=== PATIENT | female | born 1955 | race Caucasian/White ===

== ENCOUNTER 2016-05-29 08:17 | Inpatient (IN) | payer MEDICARE, BC ==
[2016-05-29] MEDS ORDERED: methylPREDNISolone SOD SUCCI 125 MG/2 ML VIAL IV STA (08:49)
[2016-05-29] MEDS ORDERED: SODIUM CHLORIDE 0.9% 1,000 ML IV STA ×2 (08:49→10:38)
[2016-05-29 09:32] LABS: Basophils % (A) 0 %; CH 31.1; Eosinophils % (A) 0 %; HCT 41.6 % (34.0-46.0); HDW 2.49; HGB 13.4 gm/dL (11.4-16.0); Luc # (Auto) 0.08; Luc % (Auto) 1; Lymphocytes # (A) 0.2 k/uL (1.0-4.8); Lymphocytes % (A) 2 %; MCH 30.4 pg (25.0-35.0); MCHC 32.2 g/dL (31.0-37.0); MCV 94.4 fL (80.0-100.0); Mean Platelet Volume 8.4; Monocytes # (A) 0.4 k/uL (0-1.0); Monocytes % (A) 4 %; Neutrophils # (A) 8.9 k/uL (1.3-7.7); Neutrophils % (A) 93 %; RBC 4.41 m/uL (3.80-5.40); RDW 12.1 % (11.5-15.5); WBC 9.5 k/uL (3.8-10.6); WBC (Perox) 9.78
[2016-05-29 09:44] LABS: Potassium 4.3 mmol/L (3.5-5.1); Total Bilirubin 0.5 mg/dL (0.2-1.3); Total Protein 8.3 g/dL (6.3-8.2)
--- NOTE | 2016-05-29 09:50 | CT ---
EXAMINATION TYPE: CT brain wo con DATE OF EXAM: 05/29/2016 9:40 AM COMPARISON: MRI brain May 31, 2015. HISTORY: Patient poor historian. Patient displays aphasia. Patient has history of MS. CT DLP: 1019 mGycm. Automated Exposure Control for Dose Reduction was Utilized. TECHNIQUE: CT scan of the head is performed without contrast. FINDINGS: There is no acute intracranial hemorrhage or midline shift identified. There is symmetric sulcal prominence over the frontal lobes bilaterally suggesting frontal lobe atrophy redemonstrated. Some areas of low-attenuation in periventricular white matter are nonspecific and likely related to patient's known multiple sclerosis, for reference largest 9 mm lesion is noted right parietal lobe ce ntrum semiovale mild bowel level on axial image 28. There is however new vague areas of low-attenuat ion involving the occipital lobes bilaterally, left worse than right, findings seen best on coronal i mage 53. The globes are intact and the visualized sinuses are clear. IMPRESSION: Mild diffuse symmetric frontal lobe atrophy redemonstrated. Mild nonspecific white matter changes likely a combination of product of known multiple sclerosis and product of chronic small ves romi ischemic change. New nonspecific vague low attenuation bilateral occipital lobes, left worse than right, this would be atypical appearance of demyelinating disease exacerbation, acute/subacute infar ct is in the differential but bilateral involvement would be unusual, one must consider posterior rev ersible encephalopathy syndrome. Clinical correlation advised. MRI follow-up may be beneficial.
[2016-05-29 10:05] LABS: Calcium 16.9 mg/dL (8.4-10.2)
--- NOTE | 2016-05-29 10:06 | ED ---
General Adult HPI <Beto Castro - Last Filed: 05/29/16 10:37> - General Source: patient, family, RN notes reviewed Mode of arrival: wheelchair Limitations: physical limitation <Shanon Torres - Last Filed: 05/29/16 10:41> - General Chief complaint: Recheck/Abnormal Lab/Rx Stated complaint: MS Problems Time Seen by Provider: 05/29/16 08:39 - History of Present Illness Initial comments: 60 yo female presents to the ER with cc of flareup of her MS symptoms. The patient does have are from EMS. The patient has been on experimental drugs and being seen with a neurologist for this. The patient normally gets up she walks she drives. On she started not feel to do these things. The patient is having difficulty walking she states also she'll get a jerk and then she'll lose control. Patient states she notices weakness to the leg she can still move them they just feel weak as well as to the bilateral arms and she feels jerky. Patient states that her cognition is seems off as well. He states this all started they called the neurologist the neurologist was trying to make an appointment for Sunday or Sunday they're unable to get her in today so that they should be seen. She is no loss of bowel or bladder function. She has fallen but never to injure herself. They were concerned because of how for she was doing. She has a MS but she's never had these problems associated with this.Patient denies any recent fever, chills, shortness of breath, chest pain, back pain, abdominal pain, nausea vomiting, numbness or tingling, dysuria or hematuria, constipation or diarrhea, headaches or visual changes, or any other current symptoms. (Shanon Torres) - Related Data Home Medications Medication Instructions Recorded Confirmed ALPRAZolam [Xanax] 0.25 mg PO DAILY PRN 07/20/14 05/29/16 Amitriptyline HCl [Elavil] 50 mg PO HS 07/20/14 05/29/16 Cetirizine HCl [Zyrtec] 10 mg PO HS 07/20/14 05/29/16 Mirabegron [Myrbetriq] 25 mg PO DAILY 07/20/14 05/29/16 OXcarbazepine [Trileptal] 300 mg PO BID 07/20/14 05/29/16 tiZANidine [Zanaflex] 2 mg PO QID 07/20/14 05/29/16 Ampyra Er 10 mg PO BID 05/29/16 05/29/16 Ciprofloxacin HCl [Cipro] 250 mg PO BID 05/29/16 05/29/16 Fingolimod HCl [Gilenya] 0.5 mg PO DAILY 05/29/16 05/29/16 Fluconazole [Diflucan] 100 mg PO DAILY 05/29/16 05/29/16 Hydrocortisone/Iodoquinol Crm 1 applic TOPICAL DAILY 05/29/16 05/29/16 [Vytone 1%-1%] Multivitamins, Thera [Multivitamin] 1 tab PO DAILY 05/29/16 05/29/16 Nystatin 100,000Unit/gm Cream 1 applic TOPICAL BID PRN 05/29/16 05/29/16 [Mycostatin Cream] Raloxifene [Evista] 60 mg PO DAILY 05/29/16 05/29/16 metroNIDAZOLE [Metrolotion] 1 applic TOPICAL BID 05/29/16 05/29/16 Allergies Allergy/AdvReac Type Severity Reaction Status Date / Time Sulfa (Sulfonamide Allergy hives Verified 05/29/16 09:04 Antibiotics) Review of Systems ROS Other: All systems not noted in ROS Statement are negative. <Beto Castro - Last Filed: 05/29/16 10:37> ROS Other: All systems not noted in ROS Statement are negative. <Shanon Torres - Last Filed: 05/29/16 10:41> ROS Statement: Those systems with pertinent positive or pertinent negative responses have been documented in the HPI. Past Medical History Past Medical History: GERD/Reflux Additional Past Medical History / Comment(s): multiple sclerosis, migraines, chronic constipation, hx ulcer History of Any Multi-Drug Resistant Organisms: None Reported Past Surgical History: Section, Tonsillectomy Additional Past Surgical History / Comment(s): D&C's, sinus surgery Past Anesthesia/Blood Transfusion Reactions: Motion Sickness, Postoperative Nausea & Vomiting (PONV) Past Psychological History: Anxiety Smoking Status: Former smoker Past Alcohol Use History: None Reported Past Drug Use History: None Reported <Shanon Torres - Last Filed: 05/29/16 10:41> General Exam <Beto Castro - Last Filed: 05/29/16 10:37> Limitations: physical limitation <Shanon Torres - Last Filed: 05/29/16 10:41> - General Exam Comments Initial Comments: General: The patient is awake and alert, in no distress, and does not appear acutely ill. Eye: Pupils are equal, round and reactive to light, extra-ocular movements are intact; there is normal conjunctiva bilaterally. No signs of icterus. Ears, nose, mouth and throat: There are moist mucous membranes. Neck: The neck is supple, there is no tenderness. Cardiovascular: There is a regular rate and rhythm. No murmur, rub or gallop is appreciated. Respiratory: Lungs are clear to auscultation, respirations are non-labored, breath sounds are equal. No wheezes, stridor, rales, or rhonchi. Gastrointestinal: Soft, non-distended, non-tender abdomen without masses or organomegaly noted. There is no rebound or guarding present. No CVA tenderness. Bowel sounds are unremarkable. Back: There is no tenderness to palpation in the midline. There is no obvious deformity. No rashes noted. Musculoskeletal: Generalized weakness to all extremities. Normal ROM, no tenderness, There is no pedal edema. There is no calf tenderness or swelling. Sensation intact. Pulses equal bilaterally 2+. Neurological: CN II-XII intact, There are no obvious motor or sensory deficits. Coordination appears grossly intact. Speech is normal. Skin: Skin is warm and dry and no rashes or lesions are noted. Psychiatric: Cooperative, appropriate mood & affect, normal judgment. (Shanon Torres) Medical Decision Making - Lab Data Result diagrams: 05/29/16 09:20 05/29/16 09:20 <Beto Castro - Last Filed: 05/29/16 10:37> - Lab Data Result diagrams: 05/29/16 09:20 05/29/16 09:20 - Radiology Data Radiology results: report reviewed, image reviewed <Shanon Torres - Last Filed: 05/29/16 10:41> - Medical Decision Making Patient was reevaluated by myself, Dr. Castro. Patient has diffuse mild weakness without focal deficit. Patient states this has been present for a month however worse over the past 4 days and is essentially unable to walk. Patient does not see a local neurologist. Case was discussed in detail with Dr. Gibson, who will admit for Dr. Cabral. He recommends site metal 250 every 6. Consult will be placed for neurology. Patient will be provided fluids and ionized calcium level will be drawn. MRI of the brain will be ordered. (Beto Castro) 60-year-old female presents to emergency Department chief complaint of concern for her MS. at this time CAT scan is reviewed. At this time we will order the MRI to further evaluate the CAT scan results. Patient's symptoms are consistent with MS exacerbation she was started on steroids. Patient also does not have a elevated calcium which we didn't treat with increased fluids as well as bilateral will pending results of an ionized calcium. Patient also does appear to have an acute kidney injury we'll treat that with fluids as well. The patient will be evaluated by neurology as well. Patient and family were discussed with the plan and they aren't agreement. At this time the patient will be admitted. (Shanon Torres) - Lab Data Lab Results 05/29/16 05/29/16 Range/Units 09:20 09:20 WBC 9.5 (3.8-10.6) k/uL RBC 4.41 (3.80-5.40) m/uL Hgb 13.4 (11.4-16.0) gm/dL Hct 41.6 (34.0-46.0) % MCV 94.4 (80.0-100.0) fL MCH 30.4 (25.0-35.0) pg MCHC 32.2 (31.0-37.0) g/dL RDW 12.1 (11.5-15.5) % Plt Count 241 (150-450) k/uL Neutrophils % 93 % Lymphocytes % 2 % Monocytes % 4 % Eosinophils % 0 % Basophils % 0 % Neutrophils # 8.9 H (1.3-7.7) k/uL Lymphocytes # 0.2 L (1.0-4.8) k/uL Monocytes # 0.4 (0-1.0) k/uL Eosinophils # 0.0 (0-0.7) k/uL Basophils # 0.0 (0-0.2) k/uL Sodium 141 (137-145) mmol/L Potassium 4.3 (3.5-5.1) mmol/L Chloride 96 L (98-107) mmol/L Carbon Dioxide 33 H (22-30) mmol/L Anion Gap 12 mmol/L BUN 38 H (7-17) mg/dL Creatinine 1.81 H (0.52-1.04) mg/dL Est GFR (MDRD) Af Amer 34 (>60 ml/min/1.73 sqM) Est GFR (MDRD) Non-Af 28 (>60 ml/min/1.73 sqM) Glucose 150 H (74-99) mg/dL Calcium 16.9 H* (8.4-10.2) mg/dL Total Bilirubin 0.5 (0.2-1.3) mg/dL AST 43 H (14-36) U/L ALT 54 H (9-52) U/L Alkaline Phosphatase 85 (38-126) U/L Total Protein 8.3 H (6.3-8.2) g/dL Albumin 4.3 (3.5-5.0) g/dL Disposition <Beto Castro - Last Filed: 05/29/16 10:37> Time of Disposition: 10:41 Decision Date: 05/29/16 Decision Time: 10:41 <Shanon Torres - Last Filed: 05/29/16 10:41> Clinical Impression: NEEL (acute kidney injury), Hyperkalemia, Exacerbation of multiple sclerosis Disposition: ADMITTED IP TO THIS [facility] Condition: Stable
[2016-05-29] MEDS ORDERED: HYDROcodone/APAP 5-325MG 1 EACH TAB PO PRN (10:41)
[2016-05-29] MEDS ORDERED: ACETAMINOPHEN TAB 325 MG TAB PO PRN (10:41)
[2016-05-29] MEDS ORDERED: NALOXONE 0.4 MG/ML 1 ML VIAL IV PRN (10:41)
[2016-05-29] MEDS ORDERED: ONDANSETRON 4 MG/2 ML VIAL IVP PRN (10:41)
[2016-05-29] MEDS ORDERED: ALPRAZolam 0.25 MG TAB PO PRN (10:43)
[2016-05-29] MEDS ORDERED: methylPREDNISolone SOD SUCCI 125 MG/2 ML VIAL IV SCH (12:00)
[2016-05-29] MEDS: SODIUM CHLORIDE 0.9% 1,000 ML IV SCH ×2 (12:15→23:23)
[2016-05-29] MEDS: MULTIVITAMINS, THERA 1 EACH TAB PO SCH (12:31)
[2016-05-29 12:37] LABS: Appearance,Urine Clear (Clear); Bilirubin,Urine Negative (Negative); Glucose,Urine (UA) Negative (Negative); Ketones,Urine Negative (Negative); Leukocyte Esterase,Urine Negative (Negative); Nitrite,Urine Negative (Negative); PH, Urine 6.5 (5.0-8.0); Protein,Urine Negative (Negative); Specific Gravity,Urine 1.007 (1.001-1.035); UA Billing (MACRO vs. MICRO) CHEM; Urobilinogen,Urine <2.0 mg/dL (<2.0)
--- NOTE | 2016-05-29 16:23 | P.HPIM ---
History of Present Illness H&P Date: 05/29/16 Chief Complaint: Difficulty with standing and ambulating This is a 60-year-old female with a known past medical history of multiple sclerosis, migraines, constipation, and anxiety. Patient was brought into the emergency room with possible multiple sclerosis exacerbation. Patient takes an experimental medication called Ampyra. She is followed by a Dr. Gonzalez, neurologist out of [place]. Patient had taken the Ampyra for about 5 weeks. She had called her neurologist and stopped taking it because it was affecting her walking. Per patient's she usually walks [employer] without difficulty. Start symptoms started on Sunday where she couldn't stand he had help her to the bathroom. Patient was unable to walk she was sleeping a lot to the day. Also her speech started to become slower. She was also having difficulty writing. Patient had recently been treated for urinary tract infection with Cipro. Did start the Diflucan for yeast infection. One of the side effects of the Ampyra was recurrent UTIs. Her urinalysis was negative. Patient admitted to the hospital for an MS exacerbation. Started on IV Solu- Medrol. Neurology consulted. Computed tomography scan of the brain head showed mild diffuse symmetric frontal lobe atrophy. Mild nonspecific white matter changes likely a combination of product of known multiple sclerosis and product of chronic small vessel ischemic change. There is a new nonspecific vague low attenuation bilateral occipital lobes, left worse than right. This is atypical appearance of demyelinating disease and facet patient. Acute/ subacute infarct is in the differential also possible Route posterior reversible encephalopathy syndrome. An MRI of the brain has been ordered. Patient was also found to have acute kidney injury with a creatinine of 1.81 BUN of 38. She's been given IV fluids. She is also tachycardic heart rate of 107 with a blood pressure of 183/92. She was found to have a calcium level of 16.9 ionized calcium of 8.6. Parathyroid hormone level has been ordered. Patient is lying in bed comfortably no distress. However, her speech is very slow. She is repetitive with her wording. Difficult to obtain history. Denies any fevers chills or sweats. Denies any chest pain or shortness of breath. Denies any burning with urination. Denies any bowel movement changes. Review of Systems Please refer to HPI otherwise unremarkable Past Medical History Past Medical History: GERD/Reflux Additional Past Medical History / Comment(s): Recent UTI with ABX then yeast infection with ABXs, vertigo lately, hand writing usually good but lately poor, osioporosis, multiple sclerosis, migraines, chronic constipation, History of Any Multi-Drug Resistant Organisms: None Reported Past Surgical History: Section, Tonsillectomy Additional Past Surgical History / Comment(s): D&C's, sinus surgery, EGD/ colonoscopy Past Anesthesia/Blood Transfusion Reactions: Motion Sickness, Postoperative Nausea & Vomiting (PONV) Past Psychological History: Anxiety, Depression Additional Psychological History / Comment(s): Pt resides with her spouse. She normally is independent-no assistive device and she drives. Smoking Status: Former smoker Past Alcohol Use History: None Reported Additional Past Alcohol Use History / Comment(s): Pt states she started smoking as a late teen and quit in 1977. Past Drug Use History: None Reported - Past Family History Father Family Medical History: CVA/TIA Additional Family Medical History / Comment(s): Father of a CVA. Mother Family Medical History: CVA/TIA Additional Family Medical History / Comment(s): TIAs Medications and Allergies Home Medications Medication Instructions Recorded Confirmed Type ALPRAZolam [Xanax] 0.25 mg PO DAILY PRN 07/20/14 05/29/16 History Amitriptyline HCl [Elavil] 50 mg PO HS 07/20/14 05/29/16 History Cetirizine HCl [Zyrtec] 10 mg PO HS 07/20/14 05/29/16 History Mirabegron [Myrbetriq] 25 mg PO DAILY 07/20/14 05/29/16 History OXcarbazepine [Trileptal] 300 mg PO BID 07/20/14 05/29/16 History tiZANidine [Zanaflex] 2 mg PO QID 07/20/14 05/29/16 History Ampyra Er 10 mg PO BID 05/29/16 05/29/16 History Ciprofloxacin HCl [Cipro] 250 mg PO BID 05/29/16 05/29/16 History Fingolimod HCl [Gilenya] 0.5 mg PO DAILY 05/29/16 05/29/16 History Fluconazole [Diflucan] 100 mg PO DAILY 05/29/16 05/29/16 History Hydrocortisone/Iodoquinol Crm 1 applic TOPICAL DAILY 05/29/16 05/29/16 History [Vytone 1%-1%] Multivitamins, Thera [Multivitamin] 1 tab PO DAILY 05/29/16 05/29/16 History Nystatin 100,000Unit/gm Cream 1 applic TOPICAL BID PRN 05/29/16 05/29/16 History [Mycostatin Cream] Raloxifene [Evista] 60 mg PO DAILY 05/29/16 05/29/16 History metroNIDAZOLE [Metrolotion] 1 applic TOPICAL BID 05/29/16 05/29/16 History Allergies Allergy/AdvReac Type Severity Reaction Status Date / Time Sulfa (Sulfonamide Allergy hives Verified 05/29/16 09:04 Antibiotics) Physical Exam Vitals: Vital Signs Temp Pulse Resp BP Pulse Ox 05/29/16 11:06 97.4 F L 107 H 16 183/92 96 Head normocephalic Neck supple Lungs clear to auscultation bilaterally no wheezing or crackles Heart regular rate and rhythm S1-S2, no rub or gallop Abdomen is soft nontender nondistended positive bowel sounds no hepatosplenomegaly Extremities no edema Neuro alert and orientated to name. Her speech is slowed repetitive with her wording. Hand parts consultant is weak bilaterally during the hand parts consultant patient's arms was this fall to the bed. Same with exam of the lower extremities she is able to raise her legs for a few seconds and then a fall to the bed. Results CBC & Chem 7: 05/29/16 09:20 05/29/16 09:20 Labs: Abnormal Lab Results - Last 24 Hours (Table) 05/29/16 Range/Units 11:19 Ionized Calcium Francine 8.6 H* (4.5-5.3) mg/dL Thrombosis Risk Factor Assmnt - Choose All That Apply Any of the Below Risk Factors Present?: Yes Other Risk Factors: Yes Each Risk Factor Represents 2 Points: Age 61-74 years Other congenital or acquired thrombophilia - If yes, enter type in comment: No Thrombosis Risk Factor Assessment Total Risk Factor Score: 2 Thrombosis Risk Factor Assessment Level: Low Risk Assessment and Plan Plan: 1. Possible multiple sclerosis exacerbation: Patient has been started on IV Solu-Medrol 250 mg IV every 6 hours. Neurology has been consulted. Computed tomography scan of the brain and changes as described above. MRI of the brain has been ordered for further evaluation. Patient had been on and Ampyra an experimental medication. She went off of it because she felt that it may have been affecting her walking. Add aspirin 81 mg 1 by mouth daily. 2. Acute kidney injury likely related to dehydration. Creatinine 1.81 BUN 38. Continue with IV fluids 3. Hypercalcemia: Calcium level is 16.9 and ionized calcium 8.6. Check parathyroid hormone 4. Accelerated hypertension: Continue to monitor blood pressures. Add hydralazine 25 mg by mouth twice a day. Note that due to a possible acute versus subacute infarcts in the differential noted on computed tomography scan the brain will hold blood pressure medication for SBP< 160. We'll await further neurology evaluation and MRI of the brain 5. Tachycardia possibly related dehydration: Check EKG and continue with IV fluids. Add manager monitoring 6. History of multiple sclerosis 7. History of migraine headaches 8. History of generalized anxiety disorder GI prophylaxis Protonix and DVT prophylaxis subcu heparin Time with Patient: Greater than 30 (Greater than 50% of the total time spent in counseling and coordination of care.I performed an examination of the patient and discussed their management with the physician [employer]. I have reviewed the Physician [employer]'s notes and agree with the documented findings and plan of care)
[2016-05-29] MEDS: ASPIRIN 81 MG CHEW PO SCH (16:56)
[2016-05-29] MEDS ORDERED: hydrALAZINE HCL 25 MG TAB PO PRN (17:16)
--- NOTE | 2016-05-29 19:37 | P.CNNES ---
History of Present Illness Consult date: 05/29/16 Reason for Consult: Patient with acute MS exacerbation. History of Present Illness: This patient is a 60-year-old right-handed white female who was admitted to hospital with acute weakness and history of multiple sclerosis. [facility] [place] by Dr. Gonzalez. According to her who provided the medical history she was diagnosed with MS in 1986. She has been treated with various treatments over the years. She apparently had treatment with to Tysabri in the past as well as Techfidera. More recently she was placed on Gelinya for long-term management. According to the over the last 3 days she has shown increased weakness and difficulty with ambulation. He was thinking of taking her to her primary neurologist in [place] however he decided to bring her to the hospital today for local assessment. She did undergo a computed tomography scan of the brain on admission which revealed evidence of nonspecific low-attenuation in the bilateral occipital lobes. The admitting physician has now ordered an MRI of the brain for further assessment. Given her history of chronic multiple sclerosis there is concern for possibility of new areas of demyelinating plaque. There is also concern for possibility of PML given her various medications that she has been treated with over the years for her MS. According to the she has had multiple MRIs done over the years and these will need to be compared. The patient is scheduled for MRI of the brain tomorrow. There is concern whether the patient has some visual loss due to the occipital lobe changes seen on the computed tomography scan of the brain. Patient is very weak and unable to provide much history today. states that she has been more confused recently as well. We will await the MRI results and give further recommendations. She is now been admitted for acute MS exacerbation. She has been started on IV Solu-Medrol for further management. Depending on her MRI further recommendations will be given. Her overall prognosis at this time remains very guarded. Case was discussed at length with the patient's at bedside. All of his questions were answered. He is aware of her guarded condition. Review of Systems Constitutional: Denies chills, Denies fever Eyes: denies blurred vision, denies pain Ears, nose, mouth and throat: Denies headache, Denies sore throat Cardiovascular: Denies chest pain, Denies shortness of breath Respiratory: Denies cough Gastrointestinal: Denies abdominal pain, Denies diarrhea, Denies nausea, Denies vomiting Genitourinary: Denies dysuria, Denies hematuria Musculoskeletal: Denies myalgias Integumentary: Denies pruritus, Denies rash Neurological: Reports change in mentation, Reports loss of vision, Reports paresthesias, Denies numbness, Denies weakness Psychiatric: Reports confusion, Denies anxiety, Denies depression Endocrine: Denies fatigue, Denies weight change Past Medical History Past Medical History: GERD/Reflux Additional Past Medical History / Comment(s): Recent UTI with ABX then yeast infection with ABXs, vertigo lately, hand writing usually good but lately poor, osioporosis, multiple sclerosis, migraines, chronic constipation, History of Any Multi-Drug Resistant Organisms: None Reported Past Surgical History: Section, Tonsillectomy Additional Past Surgical History / Comment(s): D&C's, sinus surgery, EGD/ colonoscopy Past Anesthesia/Blood Transfusion Reactions: Motion Sickness, Postoperative Nausea & Vomiting (PONV) Past Psychological History: Anxiety, Depression Additional Psychological History / Comment(s): Pt resides with her spouse. She normally is independent-no assistive device and she drives. Smoking Status: Former smoker Past Alcohol Use History: None Reported Additional Past Alcohol Use History / Comment(s): Pt states she started smoking as a late teen and quit in 1977. Past Drug Use History: None Reported - Past Family History Father Family Medical History: CVA/TIA Additional Family Medical History / Comment(s): Father of a CVA. Mother Family Medical History: CVA/TIA Additional Family Medical History / Comment(s): TIAs Medications and Allergies Home Medications Medication Instructions Recorded Confirmed Type ALPRAZolam [Xanax] 0.25 mg PO DAILY PRN 07/20/14 05/29/16 History Amitriptyline HCl [Elavil] 50 mg PO HS 07/20/14 05/29/16 History Cetirizine HCl [Zyrtec] 10 mg PO HS 07/20/14 05/29/16 History Mirabegron [Myrbetriq] 25 mg PO DAILY 07/20/14 05/29/16 History OXcarbazepine [Trileptal] 300 mg PO BID 07/20/14 05/29/16 History tiZANidine [Zanaflex] 2 mg PO QID 07/20/14 05/29/16 History Ampyra Er 10 mg PO BID 05/29/16 05/29/16 History Ciprofloxacin HCl [Cipro] 250 mg PO BID 05/29/16 05/29/16 History Fingolimod HCl [Gilenya] 0.5 mg PO DAILY 05/29/16 05/29/16 History Fluconazole [Diflucan] 100 mg PO DAILY 05/29/16 05/29/16 History Hydrocortisone/Iodoquinol Crm 1 applic TOPICAL DAILY 05/29/16 05/29/16 History [Vytone 1%-1%] Multivitamins, Thera [Multivitamin] 1 tab PO DAILY 05/29/16 05/29/16 History Nystatin 100,000Unit/gm Cream 1 applic TOPICAL BID PRN 05/29/16 05/29/16 History [Mycostatin Cream] Raloxifene [Evista] 60 mg PO DAILY 05/29/16 05/29/16 History metroNIDAZOLE [Metrolotion] 1 applic TOPICAL BID 05/29/16 05/29/16 History Allergies Allergy/AdvReac Type Severity Reaction Status Date / Time Sulfa (Sulfonamide Allergy hives Verified 05/29/16 09:04 Antibiotics) Physical Examination - Vital Signs Vital Signs: Vital Signs Temp Pulse Pulse Resp BP BP Pulse Ox 05/29/16 13:00 114 H 16 181/96 96 05/29/16 11:06 97.4 F L 107 H 16 183/92 96 Intake and Output 05/29/16 05/29/16 05/29/16 06:59 14:59 22:59 Intake Total 400 Balance 400 Intake: IV 400 Sodium Chloride 0.9% 1, 400 000 ml @ 100 mls/hr IV . Q10H [facility] Rx#:[id number] Other: Voiding Method Bedpan # Voids 2 - Constitutional General appearance: average body habitus, cooperative - EENT EENT: PERRL, mucous membranes moist - Respiratory Respiratory: lungs clear, normal breath sounds - Cardiovascular Cardiovascular: regular rate, normal S1, normal S2 Extremities: no peripheral edema bilaterally - Gastrointestinal Gastrointestinal: normoactive bowel sounds - Integumentary Integumentary: normal - Neurologic Cranial nerve examination: PERRL, EOMI, VFF, V1/V2/V3 grossly intact, face symmetric, tongue midline, intact gag reflex, intact corneal reflex, normal palatal elevation Speech examination: intact Sensorimotor examination: intact Motor examination - right side: 3/5: biceps, triceps, wrist flexion, wrist extension, instructor ballroom dancing, hip flexors, knee extensors, dorsiflexion, toe extension (EHL) , plantarflexion Motor examination - left side: 3/5: biceps, triceps, wrist flexion, wrist extension, instructor ballroom dancing, hip flexors, knee extensors, dorsiflexion, toe extension (EHL) , plantarflexion Detailed sensory examination: intact Reflex and gait examination: intact Reflexes: 2+: ankle, bicep, knee, tricep - Musculoskeletal Musculoskeletal: no pain - Psychiatric Psychiatric: mood/affect appropriate, cooperative Results - Laboratory Findings CBC and BMP: 05/29/16 09:20 05/29/16 09:20 Abnormal Lab Findings: Abnormal Labs 05/29/16 11:19 Ionized Calcium Francine 8.6 H* Assessment and Plan (1) Exacerbation of multiple sclerosis Status: Acute Code(s): G35 - MULTIPLE SCLEROSIS (2) Visual loss Status: Acute Code(s): H54.7 - UNSPECIFIED VISUAL LOSS (3) Generalized weakness Status: Acute Code(s): R53.1 - WEAKNESS Plan: This patient is a 60-year-old female who was diagnosed with multiple sclerosis in 1986. She's been on multiple treatments over the years for her MS. Over the last 3 days she has shown increased confusion and weakness. She was admitted today for acute MS exacerbation. Her primary neurologist is at the [facility] in [place]. She is currently being treated for MS and is taking oral Gilynea. Due to her generalized weakness she was started on IV Solu -Medrol today. She underwent a computed tomography scan of the brain which does reveal evidence some changes in the occipital lobe bilaterally. We would recommend close evaluation of follow-up MRI to further evaluate for MS plaque lesions versus possible PML. She has been checked for this condition in the past according to her and her tests were negative. Further recommendations will be given depending on her MRI results. Her overall prognosis at this time remains very guarded. Time with Patient: Greater than 30
[2016-05-29] MEDS ORDERED: AMPYRA 10 MG PO SCH (21:00)
[2016-05-29] MEDS ORDERED: hydrALAZINE HCL 25 MG TAB PO SCH (21:00)
[2016-05-29] MEDS: HEPARIN SODIUM,PORCINE 5,000 UNIT/ML 1 ML VIAL SQ SCH (21:17)
[2016-05-29] MEDS: AMITRIPTYLINE HCL 50 MG TAB PO SCH (21:18)
[2016-05-29] MEDS: LORATADINE 10 MG TAB PO SCH (21:18)
[2016-05-29] MEDS: OXcarbazepine 300 MG TAB PO SCH (21:18)
[2016-05-30] MEDS: SODIUM CHLORIDE 0.9% 1,000 ML IV SCH ×2 (07:45→17:35)
[2016-05-30] MEDS: Fingolimod Hcl [Gilenya] 0.5 MG PO SCH (07:52)
[2016-05-30] MEDS: RALOXIFENE 60 MG TAB PO SCH (07:52)
[2016-05-30] MEDS: ASPIRIN 81 MG CHEW PO SCH (07:53)
[2016-05-30] MEDS: OXcarbazepine 300 MG TAB PO SCH ×2 (07:53→21:36)
[2016-05-30] MEDS: OXYBUTYNIN XL 5 MG TAB.ER.24 PO SCH (07:53)
[2016-05-30] MEDS: PANTOPRAZOLE 40 MG TABLET PO SCH (07:53)
[2016-05-30] MEDS: HEPARIN SODIUM,PORCINE 5,000 UNIT/ML 1 ML VIAL SQ SCH ×2 (07:53→21:36)
--- NOTE | 2016-05-30 11:23 | MR ---
"EXAMINATION TYPE: MR brain [facility] Inpatient stat MRI DATE OF EXAM: 05/30/2016 10:30 AM COMPARISON: 05/31/2015 HISTORY: Mental status change T1-weighted sagittal, T2, FLAIR, and diffusion axial, and T2 coronal coronal views of the brain are s ubmitted. The ventricles, basal cisterns, and sulci overlying the convexities are consistent with the patient's age. There is no mass effect. Craniocervical junction maintained. Sella turcica has a normal appearance. There is abnormal signal seen within the posterior occipital and parietal occipital junction bilatera lly which appears fairly symmetric and appears to be predominantly cortical. Appears to be high in si gnal on diffusion imaging. T2 Lesions Present : Yes Approximate Number of Lesions: Two lesions are noted right cerebral hemisphere and approximately 5 lesions left c erebral hemisphere. Locations Identified : Lesions are located primarily within the deep white matter both cerebral hemis pheres. Size of Largest Lesion(s): 1. Posterior right tay radiata lesion measures 10 mm. 2. Largest lesion on the left measures 6 mm and is located in the region of the external capsule. IMPRESSION: 1. Abnormal signal seen within the posterior occipital lobes appears fairly symmetric. Appears high i n signal on diffusion imaging. Differential diagnosis would include progressive reversible encephalop athic syndrome (PRES). BE seen with hypertension, acute kidney injury, hemolytic uremic syndrome, col lagen vascular disease or drug toxicity. Findings do appear to be high on diffusion suggestive of subacute acute ischemia. Bilateral atypical presentation of MS or bilateral subacute to acute ischemic changes also in differential. Other less l ikely considerations include hypoxic encephalopathy, severe hypoglycemia or progressive multifocal le ukoencephalopathy. Report immediately telephoned to the patient's nurse. 2. Stable additional white matter lesions unchanged from the previous exam compatible the patient's h istory of MS. A Red message has been communicated to Sabiha Villarreal MD via the [employer] | Critical Result sy stem on 05/30/2016 11:14 AM, Message ID [id number]."
[2016-05-30 11:32] LABS: Basophils % (A) 0 %; CHCM 32.8; Eosinophils % (A) 0 %; HCT 34.8 % (34.0-46.0); HDW 2.39; HGB 11.1 gm/dL (11.4-16.0); Luc # (Auto) 0.04; Luc % (Auto) 0; Lymphocytes # (A) 0.2 k/uL (1.0-4.8); Lymphocytes % (A) 1 %; MCH 30.3 pg (25.0-35.0); MCV 94.8 fL (80.0-100.0); Mean Platelet Volume 7.9; Monocytes # (A) 0.3 k/uL (0-1.0); Monocytes % (A) 2 %; Neutrophils # (A) 12.5 k/uL (1.3-7.7); Neutrophils % (A) 96 %; RBC 3.67 m/uL (3.80-5.40); RDW 12.4 % (11.5-15.5); WBC (Perox) 14.11
[2016-05-30 11:33] LABS: Calcium 12.2 mg/dL (8.4-10.2); Potassium 3.9 mmol/L (3.5-5.1); Total Bilirubin 0.3 mg/dL (0.2-1.3); Total Protein 6.6 g/dL (6.3-8.2)
[2016-05-30] MEDS: MULTIVITAMINS, THERA 1 EACH TAB PO SCH (12:10)
[2016-05-30 12:17] LABS: Ionized Calcium 6.8 mg/dL (4.5-5.3)
--- NOTE | 2016-05-30 13:31 | XR ---
EXAMINATION TYPE: XR chest 2V DATE OF EXAM: 05/30/2016 1:24 PM COMPARISON: NONE HISTORY: Extended care facility placement TECHNIQUE: Frontal and lateral views of the chest are obtained. FINDINGS: There is chronic parenchymal change with elevated left hemidiaphragm. There is no focal ai r space opacity, pleural effusion, or pneumothorax seen bilaterally. The cardiac silhouette size is within normal limits. The osseous structures are demineralized. Linear 2.5 cm soft tissue foreign b cristian right posterior upper to mid back is noted. IMPRESSION: No suspicious acute pulmonary process.
--- NOTE | 2016-05-30 17:37 | P.PN ---
Subjective Principal diagnosis: acute MS exacerbation patient is a 60-year-old female admitted to [facility] due to worsening weakness, which started 3 days prior to admission patient had increased weakness and difficulty with ambulation. Patient has a known history of multiple sclerosis diagnosed in [address] Gonzalez in [place] Objective - Vital Signs Vital signs: Vital Signs Temp 98.3 F 05/30/16 15:00 Pulse 107 H 05/30/16 16:00 Resp 18 05/30/16 16:00 BP 149/71 05/30/16 15:00 Pulse Ox 98 05/30/16 15:00 Intake & Output 05/29/16 05/30/16 05/30/16 18:59 06:59 18:59 Intake Total 400 1740 1590 Balance 400 1740 1590 Weight 54.431 kg Intake: IV 400 1200 950 Sodium Chloride 0.9% 1, 400 1200 950 000 ml @ 100 mls/hr IV . Q10H [facility] Rx#:[id number] Intake, IV Titration 100 Amount methylPREDNISolone SOD 100 SUCC 250 mg In Sodium Chloride 0.9% 100 ml @ 100 mls/hr IVPB Q6HR [facility] Rx#:[id number] Oral 540 540 Other: Voiding Method Bedpan Diaper Diaper Incontinent Incontinent # Voids 2 3 3 - Exam in general patient is alert and oriented in no apparent distress HEENT head normocephalic and atraumatic Neck is supple no JVD no goiter no lymphadenopathy Chest exam reveals clear respiratory sounds no crackles no wheezing Cardiac exam reveals regular heart sounds S1 and S2 no gallops no murmurs Abdomen is soft nontender no organomegaly Extremity exam reveals no edema no cyanosis or clubbing Neurological exam detailed in Dr. Nesbitt's consult - Labs CBC & Chem 7: 05/30/16 10:56 05/30/16 10:56 Labs: Abnormal Lab Results - Last 24 Hours (Table) 05/30/16 05/30/16 Range/Units 10:56 10:56 WBC 13.0 H (3.8-10.6) k/uL RBC 3.67 L (3.80-5.40) m/uL Hgb 11.1 L (11.4-16.0) gm/dL Neutrophils # 12.5 H (1.3-7.7) k/uL Lymphocytes # 0.2 L (1.0-4.8) k/uL BUN 45 H (7-17) mg/dL Creatinine 1.91 H (0.52-1.04) mg/dL Glucose 117 H (74-99) mg/dL Calcium 12.2 H (8.4-10.2) mg/dL Ionized Calcium Francine 6.8 H* (4.5-5.3) mg/dL AST 39 H (14-36) U/L Albumin 3.2 L (3.5-5.0) g/dL Microbiology - Last 24 Hours (Table) 05/29/16 12:15 Urine Culture - Final Urine,Clean Catch Assessment and Plan Plan: #1 acute multiple sclerosis exacerbation maintained on IV steroids Solu-Medrol 250 mg every 6 hours continue #2 abnormal MRI with symmetrical abnormal signals in bilateral occipital lobes, this is concerning and could not be explained on the basis of her MS, case discussed was Dr. Villarreal neurologist and he recommended transferring the patient to a tertiary Care [facility] Dr. Gonzalez was contacted and he advised that to have patient admitted to [facility] arrangement has been started by family service caseworker and fortunately no beds available today.
--- NOTE | 2016-05-30 19:50 | P.PN ---
Subjective This patient is a 60-year-old right-handed white female who was admitted yesterday for acute MS exacerbation and weakness. Patient has a long-standing history of underlying multiple sclerosis. She is followed by her neurologist in [place] who has recently seen her a few months ago. She was doing very well until her day of admission. Apparently she was having symptoms of increased weakness and confusion. She was brought into the emergency room yesterday and underwent a computed tomography scan of the brain which suggested possibility of acute stroke. She was subsequent sent for MRI of the brain today for further evaluation. She was started on IV Solu-Medrol yesterday as treatment for acute MS exacerbation. Today she is doing better and is been more awake and responsive. also notices an improvement in her overall condition today as compared to yesterday. The patient underwent MRI of the brain results of which were discussed today with the radiologist as well as Dr. Leblanc. The MRI does reveal multiple lesions. There is also abnormal signal in both posterior occipital lobes symmetrically. Multiple differential diagnoses were raised. Given the location of the occipital lobes and her history of having been treated for MS with 2 medications that have been associated with PML there was concern. Dr. Leblanc was contacted today and we did discuss the MRI results with him in detail. We have recommended the patient to be transferred to [facility] where her primary neurologist May further assist in management. She has responded to one day of IV Solu- Medrol and should continue on the same. Patient may require further evaluation for acute stroke workup. Given the bilateral nature of the occipital lobe infarcts or ischemia possibility of posterior circulation stroke should also be considered. She will require further MRA angiography for further assessment. Patient has no previous history of stroke. As mentioned arrangements are being made for transfer this patient tomorrow to [facility] for further management. We have discussed all of the MRI findings today in detail with the patient and her at bedside. All of their questions were answered. She has shown improvement today as compared to yesterday and we will continue close neurological follow-up for her. Her overall prognosis at this time remains guarded. Objective - Vital Signs Vital signs: Vital Signs Temp 98.3 F 05/30/16 15:00 Pulse 107 H 05/30/16 16:00 Resp 18 05/30/16 16:00 BP 149/71 05/30/16 15:00 Pulse Ox 98 05/30/16 15:00 Intake & Output 05/30/16 05/30/16 05/31/16 06:59 18:59 06:59 Intake Total 1740 1590 Balance 1740 1590 Weight 54.431 kg Intake: IV 1200 950 Sodium Chloride 0.9% 1, 1200 950 000 ml @ 100 mls/hr IV . Q10H [facility] Rx#:[id number] Intake, IV Titration 100 Amount methylPREDNISolone SOD 100 SUCC 250 mg In Sodium Chloride 0.9% 100 ml @ 100 mls/hr IVPB Q6HR [facility] Rx#:[id number] Oral 540 540 Other: Voiding Method Diaper Diaper Incontinent Incontinent # Voids 3 3 - Exam Physical examination: PHYSICAL EXAMINATION: Patient is resting comfortably in bed. VITAL SIGNS: Blood pressure is [149/71]. Heart rate is [67]. Respiration is [18] . Temperature is [98.3]. HEENT: Head is atraumatic, neck is supple, there were no carotid bruits. CHEST: Lungs are clear to auscultation and percussion. CARDIAC: S1, S2 normal rate and rhythm. There is no murmur. ABDOMEN: Soft and nontender. Bowel sounds are present. EXTREMITIES: There is no pedal edema. Peripheral pulses are present. Neurological examination: Patient is awake and alert today and is responsive. She is much improved in mental status as compared to yesterday. Cranial nerves II through XII are grossly intact. She does continue to have some difficulty with visual acuity. This may be secondary to MRI findings of bilateral occipital lobe involvement. Motor examination fails reveal focal weakness. Deep tendon reflexes are 2+ and symmetric. Plantar responses flexor bilaterally. Coordination and gait cannot be assessed in this patient at this time. - Labs CBC & Chem 7: 05/30/16 10:56 05/30/16 10:56 Labs: Abnormal Lab Results - Last 24 Hours (Table) 05/30/16 05/30/16 Range/Units 10:56 10:56 WBC 13.0 H (3.8-10.6) k/uL RBC 3.67 L (3.80-5.40) m/uL Hgb 11.1 L (11.4-16.0) gm/dL Neutrophils # 12.5 H (1.3-7.7) k/uL Lymphocytes # 0.2 L (1.0-4.8) k/uL BUN 45 H (7-17) mg/dL Creatinine 1.91 H (0.52-1.04) mg/dL Glucose 117 H (74-99) mg/dL Calcium 12.2 H (8.4-10.2) mg/dL Ionized Calcium Francine 6.8 H* (4.5-5.3) mg/dL AST 39 H (14-36) U/L Albumin 3.2 L (3.5-5.0) g/dL Microbiology - Last 24 Hours (Table) 05/29/16 12:15 Urine Culture - Final Urine,Clean Catch Assessment and Plan (1) Exacerbation of multiple sclerosis Status: Acute Code(s): G35 - MULTIPLE SCLEROSIS (2) Visual loss Status: Acute Code(s): H54.7 - UNSPECIFIED VISUAL LOSS (3) Generalized weakness Status: Acute Code(s): R53.1 - WEAKNESS Plan: This patient is a 60-year-old female who was admitted to hospital yesterday for acute MS exacerbation. She underwent MRI of the brain today which was completed and reviewed with Dr. Leblanc and the radiologist. MRI reveals bilateral occipital lobe changes and includes a broad differential diagnosis. Progressive reversible encephalopathic syndrome is to be considered as well as acute ischemic stroke bilaterally. This could also represents acute MS plaque lesions which seems very unlikely. Given her previous history of multiple sclerosis and treatment with medications that have been linked to PML there is also concern for some form of viral syndrome. Case was discussed at length today with Dr. Leblanc. We have recommended that the patient be transferred to [facility] for more aggressive evaluation and treatment. Case was discussed today at length with the patient's and the patient at bedside. There are no agreement with our current treatment plan. Patient shows improvement with IV Solu-Medrol. She is to continue on the IV Solu- Medrol until transferred tomorrow to [facility]. Arrangements have been made with her neurologist at [facility] and we will wait for possible transfer this patient tomorrow. Overall condition remains very guarded. We will continue close neurological follow-up of the patient during this admission. Patient did undergo routine EEG today which was reviewed. EEG shows moderately diffuse slowing. There is no evidence of any epileptiform discharges. This would be consistent with a diffuse encephalopathy. We will continue close follow-up of this patient. As mentioned her prognosis remains guarded. This case was discussed at length with Dr. Leblanc and he is in agreement with our current treatment plan.
[2016-05-30] MEDS: AMITRIPTYLINE HCL 50 MG TAB PO SCH (21:36)
[2016-05-30] MEDS: LORATADINE 10 MG TAB PO SCH (21:36)
[2016-05-30 23:51] VITALS: RESP 16
[2016-05-31] MEDS: SODIUM CHLORIDE 0.9% 1,000 ML IV SCH ×2 (06:01→18:57)
[2016-05-31] MEDS: ASPIRIN 81 MG CHEW PO SCH (07:31)
[2016-05-31] MEDS: OXcarbazepine 300 MG TAB PO SCH ×2 (07:31→20:15)
[2016-05-31] MEDS: HEPARIN SODIUM,PORCINE 5,000 UNIT/ML 1 ML VIAL SQ SCH ×2 (07:31→20:15)
[2016-05-31] MEDS: PANTOPRAZOLE 40 MG TABLET PO SCH (07:31)
[2016-05-31] MEDS: RALOXIFENE 60 MG TAB PO SCH (07:32)
[2016-05-31] MEDS: Fingolimod Hcl [Gilenya] 0.5 MG PO SCH (07:32)
[2016-05-31] MEDS: OXYBUTYNIN XL 5 MG TAB.ER.24 PO SCH (07:32)
--- NOTE | 2016-05-31 10:00 | EEG ---
DATE OF SERVICE: 05/30/2016 INDICATIONS FOR EXAMINATION: This patient is a 60-year-old female admitted with acute MS exacerbation and increased confusion. The patient is being evaluated for encephalopathy. AGE: 60Y FINDINGS: A routine 21-channel awake digital EEG recording was accomplished utilizing the 10 to 20 international system with bipolar and referential montages. The background activity in the most alert resting state consists of a low to medium amplitude poorly developed and poorly sustained 5 Hz activity over the posterior head regions. This posterior rhythm attenuates to eye opening. There is a small amount of low amplitude 18 to 20 Hz beta activity seen maximally over the anterior head regions. Muscle and movement artifact was observed on a few occasions during the tracing. Hyperventilation was not performed. Photic stimulation at flash frequencies of 2 to 30 Hz produced a minimal occipital driving response. No epileptiform discharges were seen. IMPRESSION: This EEG is moderately abnormal in a diffuse fashion due to slowing of the EEG background. The EEG failed to reveal any focal, lateralizing or epileptiform abnormalities. If clinically indicated, a follow up EEG is recommended. Clinical correlation is recommended.
[2016-05-31] MEDS: MULTIVITAMINS, THERA 1 EACH TAB PO SCH (11:55)
--- NOTE | 2016-05-31 13:48 | P.PN ---
Subjective Principal diagnosis: acute MS exacerbation patient is a 60-year-old female admitted to [facility] due to worsening weakness, which started 3 days prior to admission patient had increased weakness and difficulty with ambulation. Patient has a known history of multiple sclerosis diagnosed in [address] Gonzalez in [place] Objective - Vital Signs Vital signs: Vital Signs Temp 98.1 F 05/31/16 07:00 Pulse 78 05/31/16 11:31 Resp 16 05/31/16 07:49 BP 162/78 05/31/16 11:31 Pulse Ox 97 05/31/16 07:00 Intake & Output 05/30/16 05/31/16 05/31/16 18:59 06:59 18:59 Intake Total 1590 1200 Balance 1590 1200 Weight 54.431 kg 55 kg Intake: IV 950 1200 Sodium Chloride 0.9% 1, 950 1000 000 ml @ 100 mls/hr IV . Q10H NEO Rx#:[id number] methylPREDNISolone SOD 200 SUCC 250 mg In Sodium Chloride 0.9% 100 ml @ 100 mls/hr IVPB Q6HR NEO Rx#:[id number] Intake, IV Titration 100 Amount methylPREDNISolone SOD 100 SUCC 250 mg In Sodium Chloride 0.9% 100 ml @ 100 mls/hr IVPB Q6HR NEO Rx#:[id number] Oral 540 Other: Voiding Method Diaper Diaper Diaper Incontinent Incontinent Incontinent # Voids 3 2 - Exam in general patient is alert and oriented in no apparent distress HEENT head normocephalic and atraumatic Neck is supple no JVD no goiter no lymphadenopathy Chest exam reveals clear respiratory sounds no crackles no wheezing Cardiac exam reveals regular heart sounds S1 and S2 no gallops no murmurs Abdomen is soft nontender no organomegaly Extremity exam reveals no edema no cyanosis or clubbing Neurological exam detailed in Dr. Nesbitt's consult - Labs CBC & Chem 7: 05/30/16 10:56 05/30/16 10:56 Labs: Microbiology - Last 24 Hours (Table) 05/29/16 12:15 Urine Culture - Final Urine,Clean Catch Assessment and Plan Plan: #1 acute multiple sclerosis exacerbation maintained on IV steroids Solu-Medrol 250 mg every 6 hours continue #2 abnormal MRI with symmetrical abnormal signals in bilateral occipital lobes, this is concerning and could not be explained on the basis of her MS, case discussed was Dr. Villarreal neurologist and he recommended transferring the patient to a tertiary Care [facility].. Dr. Gonzalez was contacted and he advised that to have patient admitted to [facility] arrangement has been started by bilingual case manager and fortunately no beds available today. AWAITING bed at [facility] for transfer.
[2016-05-31 15:22] LABS: Calcium 10.1 mg/dL (8.4-10.2); Potassium 3.4 mmol/L (3.5-5.1); Total Bilirubin 0.3 mg/dL (0.2-1.3); Total Protein 6.5 g/dL (6.3-8.2)
[2016-05-31 15:32] LABS: Basophils % (A) 0 %; Eosinophils % (A) 0 %; HCT 34.9 % (34.0-46.0); HDW 2.35; HGB 11.4 gm/dL (11.4-16.0); Luc # (Auto) 0.09; Luc % (Auto) 1; Lymphocytes # (A) 0.2 k/uL (1.0-4.8); Lymphocytes % (A) 1 %; MCH 30.8 pg (25.0-35.0); MCHC 32.6 g/dL (31.0-37.0); MCV 94.2 fL (80.0-100.0); Mean Platelet Volume 8.4; Monocytes # (A) 0.6 k/uL (0-1.0); Monocytes % (A) 4 %; Neutrophils # (A) 14.1 k/uL (1.3-7.7); Neutrophils % (A) 94 %; RDW 12.2 % (11.5-15.5); WBC 15.1 k/uL (3.8-10.6); WBC (Perox) 16.09
[2016-05-31 16:37] LABS: Manual Review Performed
[2016-05-31 16:38] LABS: Basophilic Stippling Present; RBC Morphology Normal
[2016-05-31] MEDS: AMITRIPTYLINE HCL 50 MG TAB PO SCH (20:15)
[2016-05-31] MEDS: LORATADINE 10 MG TAB PO SCH (20:15)
--- NOTE | 2016-05-31 20:21 | P.PN ---
Subjective This patient is a 60-year-old right-handed white female who was admitted yesterday for acute MS exacerbation and weakness. Patient has a long-standing history of underlying multiple sclerosis. She is followed by her neurologist in [place] who has recently seen her a few months ago. She was doing very well until her day of admission. Apparently she was having symptoms of increased weakness and confusion. She was brought into the emergency room yesterday and underwent a computed tomography scan of the brain which suggested possibility of acute stroke. She was subsequent sent for MRI of the brain today for further evaluation. She was started on IV Solu-Medrol yesterday as treatment for acute MS exacerbation. Today she is doing better and is been more awake and responsive. also notices an improvement in her overall condition today as compared to yesterday. The patient underwent MRI of the brain results of which were discussed today with the radiologist as well as Dr. Leblanc. The MRI does reveal multiple lesions. There is also abnormal signal in both posterior occipital lobes symmetrically. Multiple differential diagnoses were raised. Given the location of the occipital lobes and her history of having been treated for MS with 2 medications that have been associated with PML there was concern. Dr. Leblanc was contacted today and we did discuss the MRI results with him in detail. We have recommended the patient to be transferred to [facility] where her primary neurologist may further assist in her management. She has responded to two day of IV Solu- Medrol and should continue on the same. Patient may require further evaluation for acute stroke workup. Given the bilateral nature of the occipital lobe infarcts or ischemia possibility of posterior circulation stroke should also be considered. She will require further MRA angiography for further assessment. Patient has no previous history of stroke. As mentioned arrangements are being made for transfer this patient tomorrow to [facility] for further management. We are still awaiting for an open bed at [facility]. Case management to work on this again tomorrow morning. We have discussed all of the MRI findings today in detail with the patient and her at bedside. All of their questions were answered. She has shown some improvement today as compared to yesterday and we will continue close neurological follow-up for her. Her overall prognosis at this time remains guarded. Objective - Vital Signs Vital signs: Vital Signs Temp 97.9 F 05/31/16 15:00 Pulse 78 02/08/17 15:39 Resp 16 05/31/16 15:39 BP 192/86 05/31/16 15:00 Pulse Ox 97 05/31/16 15:00 Intake & Output 05/30/16 05/31/16 05/31/16 18:59 06:59 18:59 Intake Total 1590 1200 200 Balance 1590 1200 200 Weight 54.431 kg 55 kg Intake: IV 950 1200 Sodium Chloride 0.9% 1, 950 1000 000 ml @ 100 mls/hr IV . Q10H NEO Rx#:[id number] methylPREDNISolone SOD 200 SUCC 250 mg In Sodium Chloride 0.9% 100 ml @ 100 mls/hr IVPB Q6HR NEO Rx#:[id number] Intake, IV Titration 100 Amount methylPREDNISolone SOD 100 SUCC 250 mg In Sodium Chloride 0.9% 100 ml @ 100 mls/hr IVPB Q6HR NEO Rx#:[id number] Oral 540 200 Other: Voiding Method Diaper Diaper Diaper Incontinent Incontinent Incontinent # Voids 3 2 - Exam Physical examination: PHYSICAL EXAMINATION: Patient is resting comfortably in bed. VITAL SIGNS: Blood pressure is [162/86]. Heart rate is [109]. Respiration is [18 ]. Temperature is [97.7]. HEENT: Head is atraumatic, neck is supple, there were no carotid bruits. CHEST: Lungs are clear to auscultation and percussion. CARDIAC: S1, S2 normal rate and rhythm. There is no murmur. ABDOMEN: Soft and nontender. Bowel sounds are present. EXTREMITIES: There is no pedal edema. Peripheral pulses are present. Neurological examination: Patient is awake and alert today and is responsive. She is much improved in mental status as compared to yesterday. Cranial nerves II through XII are grossly intact. She does continue to have some difficulty with visual acuity. This may be secondary to MRI findings of bilateral occipital lobe involvement. Motor examination fails reveal focal weakness. Deep tendon reflexes are 2+ and symmetric. Plantar responses flexor bilaterally. Coordination and gait cannot be assessed in this patient at this time. - Labs CBC & Chem 7: 05/31/16 14:58 05/31/16 14:58 Labs: Abnormal Lab Results - Last 24 Hours (Table) 05/31/16 05/31/16 Range/Units 14:58 14:58 WBC 15.1 H (3.8-10.6) k/uL RBC 3.70 L (3.80-5.40) m/uL Neutrophils # 14.1 H (1.3-7.7) k/uL Lymphocytes # 0.2 L (1.0-4.8) k/uL Sodium 136 L (137-145) mmol/L Potassium 3.4 L (3.5-5.1) mmol/L Carbon Dioxide 20 L (22-30) mmol/L BUN 44 H (7-17) mg/dL Creatinine 1.48 H (0.52-1.04) mg/dL Glucose 122 H (74-99) mg/dL Albumin 3.1 L (3.5-5.0) g/dL Microbiology - Last 24 Hours (Table) 05/29/16 12:15 Urine Culture - Final Urine,Clean Catch Assessment and Plan (1) Exacerbation of multiple sclerosis Status: Acute Code(s): G35 - MULTIPLE SCLEROSIS (2) Visual loss Status: Acute Code(s): H54.7 - UNSPECIFIED VISUAL LOSS (3) Generalized weakness Status: Acute Code(s): R53.1 - WEAKNESS Plan: This patient is a 60-year-old female who was admitted to hospital yesterday for acute MS exacerbation. She underwent MRI of the brain today which was completed and reviewed with Dr. Leblanc and the radiologist. MRI reveals bilateral occipital lobe changes and includes a broad differential diagnosis. Progressive reversible encephalopathic syndrome is to be considered as well as acute ischemic stroke bilaterally. This could also represents acute MS plaque lesions which seems very unlikely. Given her previous history of multiple sclerosis and treatment with medications that have been linked to PML there is also concern for some form of viral syndrome. Case was discussed at length today with Dr. Leblanc. We have recommended that the patient be transferred to [facility] for more aggressive evaluation and treatment. Case was discussed today at length with the patient's and the patient at bedside. There are no agreement with our current treatment plan. Patient shows improvement with IV Solu-Medrol. She is to continue on the IV Solu- Medrol until transferred tomorrow to [facility]. Arrangements have been made with her neurologist at [facility] and we will wait for possible transfer this patient tomorrow. Overall condition remains very guarded. We will continue close neurological follow-up of the patient during this admission. Patient did undergo routine EEG today which was reviewed. EEG shows moderately diffuse slowing. There is no evidence of any epileptiform discharges. This would be consistent with a diffuse encephalopathy. We will continue close follow-up of this patient. As mentioned her prognosis remains guarded. This case was discussed at length with Dr. Leblanc and he is in agreement with our current treatment plan. We're still awaiting the bed availability at [facility]. She is continuing on IV Solu- Medrol at this time with some improvement in her overall condition since admission. We will contact case management to see how quickly the transfer can be made tomorrow for this patient to [facility]. Case was discussed at length with the patient's at bedside. He is aware of her guarded condition. We will continue to follow her progress closely during this admission.
[2016-05-31 21:10] LABS: Glucose,Whole Blood 170 mg/dL (75-99)
[2016-05-31 22:42] VITALS: BP 168/76; PULSE 113; TEMP 97.3
--- NOTE | 2016-06-01 13:51 | P.DS ---
Providers Date of admission: 05/29/16 09:45 Expected date of discharge: 05/31/16 Attending physician: Neil Das Consults: 05/29/16 10:52 Consult Physician Routine Consulting Provider: Sabiha Villarreal Consult Reason/Comments: MS exacerbation Do you want consulting provider notified?: Yes Primary care physician: Cesar Higuera [facility] Course: Discharge diagnosis 1. Acute multiple sclerosis exacerbation: Patient has been started on IV Solu- Medrol 250 mg IV every 6 hours. Seen by neurology 2. Acute kidney injury likely related to dehydration. Creatinine 1.81 BUN 38. Continue with IV fluids 3. Hypercalcemia: Calcium level is 16.9 and ionized calcium 8.6. Check parathyroid hormone. Parathyroid hormone level low at 10.3 4. Accelerated hypertension: Continue to monitor blood pressures. 5. Tachycardia possibly related dehydration: Patient placed on telemetry. An EKG ordered. 6. History of multiple sclerosis 7. History of migraine headaches 8. History of generalized anxiety disorder Hospital course This is a 60-year-old female presented to the hospital with work worsening weakness and difficulty ambulating as well as slurred speech. There were concerns about an acute multiple sclerosis exacerbation patient was started on IV Solu-Medrol and neurology was consulted. She had a computed tomography scan of the brain completed showing Computed tomography scan of the brain head showed mild diffuse symmetric frontal lobe atrophy. Mild nonspecific white matter changes likely a combination of product of known multiple sclerosis and product of chronic small vessel ischemic change. There is a new nonspecific vague low attenuation bilateral occipital lobes, left worse than right. This is atypical appearance of demyelinating disease and facet patient. Acute/ subacute infarct is in the differential also possible Route posterior reversible encephalopathy syndrome. Patient started on an aspirin. An MRI of the brain has been ordered was then ordered showing abnormal signal seen within the posterior occipital lobes appears fairly symmetric. Differential diagnosis includes progressive reversible encephalopathy syndrome which can be seen with hypertension, acute kidney injury, hemolytic uremic syndrome, collagen vascular disease or drug toxicity. Findings do. Be high in diffusion she just above his subacute acute ischemia. Bilateral atypical presentation of MS or bilateral subacute to acute ischemic changes. Patient evaluated by neurology and they did recommend that patient be transferred to home on hospital for further evaluation and treatment. Patient was remained on IV fluids for her acute kidney injury. Kidney functions did show some improvement. Creatinine at discharge is 1.41. Patient's blood pressures had also been elevated during this admission. Hydralazine 25 mg twice a day as needed for systolic BP greater than 160 was ordered. Due to the multi differential and the MRI findings and patient's symptoms she was transferred to [facility]. Please refer to chart for any further details. Patient Condition at Discharge: Stable Plan - Discharge Summary Discharge Medication List ALPRAZolam [Xanax] 0.25 mg PO DAILY PRN 07/20/14 [History] Amitriptyline HCl [Elavil] 50 mg PO HS 07/20/14 [History] Cetirizine HCl [Zyrtec] 10 mg PO HS 07/20/14 [History] Mirabegron [Myrbetriq] 25 mg PO DAILY 07/20/14 [History] OXcarbazepine [Trileptal] 300 mg PO BID 07/20/14 [History] tiZANidine [Zanaflex] 2 mg PO QID 07/20/14 [History] Ampyra Er 10 mg PO BID 05/29/16 [History] Ciprofloxacin HCl [Cipro] 250 mg PO BID 05/29/16 [History] Fingolimod HCl [Gilenya] 0.5 mg PO DAILY 05/29/16 [History] Fluconazole [Diflucan] 100 mg PO DAILY 05/29/16 [History] Hydrocortisone/Iodoquinol Crm [Vytone 1%-1%] 1 applic TOPICAL DAILY 05/29/16 [ History] Multivitamins, Thera [Multivitamin] 1 tab PO DAILY 05/29/16 [History] Nystatin 100,000Unit/gm Cream [Mycostatin Cream] 1 applic TOPICAL BID PRN [History] Raloxifene [Evista] 60 mg PO DAILY 05/29/16 [History] metroNIDAZOLE [Metrolotion] 1 applic TOPICAL BID 05/29/16 [History] Follow up Appointment(s)/Referral(s): Cesar Cabral MD [Primary Care Provider] - 1-2 days Discharge Disposition: DC/TRNS IP HOSP W/PLND IP READ
[2016-06-05 11:07] LABS: Mis test requested (Blood) JC Polyoma Virus DNA
== END 2016-06-01 00:03 | disposition short-term general hospital (02) | DRG 58 ==
LOC: EC 08:17 → 5MS5E 09:45
PROVIDERS: ADMIT Internal Medicine; ATTEND Internal Medicine
DX: G35 Multiple sclerosis (principal); I67.83 Posterior reversible encephalopathy syndrome; I63.9 Cerebral infarction, unspecified; N17.9 Acute kidney failure, unspecified; E83.52 Hypercalcemia; I10 Essential (primary) hypertension; F32.9 Major depressive disorder, single episode, unspecified; E86.0 Dehydration; F41.1 Generalized anxiety disorder; H54.7 Unspecified visual loss; K21.9 Gastro-esophageal reflux disease without esophagitis; G43.909 Migraine, unspecified, not intractable, without status migrainosus; K59.09 Other constipation; R32 Unspecified urinary incontinence; M81.0 Age-related osteoporosis without current pathological fracture; R00.0 Tachycardia, unspecified; Z79.899 Other long term (current) drug therapy; Z88.8 Allergy status to other drugs, medicaments and biological substances; Z87.891 Personal history of nicotine dependence
CPT/HCPCS: 36415; 70450; 70551; 71020; 80053; 80183; 81003; 82330; 83735; 83970; 84100; 85025; 87086; 87798; 93005; 95819; 96361; 96365; 99285

== ENCOUNTER → 2016-07-20 | Outpatient (CLI) | payer MEDICARE, BC ==
--- NOTE | 2016-07-24 08:43 | MM ---
Reason for exam: screening (asymptomatic). Last mammogram was performed 7 months ago. History: Patient is postmenopausal. Physical Findings: A clinical breast exam by your physician is recommended on an annual basis and results should be correlated with mammographic findings. MG 3D Diag Mammo W/Cad RT CC and MLO view(s) were taken of the right breast. Prior study comparison: December 14, 2015, bilateral MG 3d screening mammo w/cad. November 19, 2014, bilateral MG screening mammo w CAD. October 01, 2013, bilateral MG screening mammo w CAD. There are scattered fibroglandular densities. No significant new findings when compared with previous films. These results were verbally communicated with the patient and result sheet given to the patient on 07/20/16. ASSESSMENT: Benign, BI-RAD 2 RECOMMENDATION: Return to routine screening mammogram schedule for both breasts. Back on schedule for November 2016.
== END | disposition home or self-care (01) ==
LOC: RADMAMWWP 13:35
PROVIDERS: ATTEND Obstetrics & Gynecology
DX: R92.8 Other abnormal and inconclusive findings on diagnostic imaging of breast (principal)
CPT/HCPCS: G0206; G0279

== ENCOUNTER → 2016-12-26 | Outpatient (CLI) | payer MEDICARE, BC ==
--- NOTE | 2016-12-26 11:47 | WWHP ---
[facility] - HISTORY AND PHYSICAL CHIEF COMPLAINT: Patient is here for her routine gynecologic exam and mammogram. HPI: This is a 61-year-old, G 2, P1-0-1-1 with an LMP of 2007. The patient states she has been having some urinary symptoms including sudden urinary urgency like when she stands from a sitting position. She typically urinates 2 times per night but occasionally will have to get up 3-4 times in 1 night. She has been using Myrbetriq for an overactive bladder. She denies dysuria. She is otherwise without complaints. PAST MEDICAL HISTORY: Multiple sclerosis since 1999. Trigeminal neuralgia. Overactive bladder. Osteoporosis, anxiety and environmental allergies. MEDICATIONS: 1. Tysabri IV infusion once monthly. 2. Zanaflex 2 mg q.i.d. 3. Elavil 25 mg daily. 4. Myrbetriq 50 mg daily. 5. Evista 60 mg daily. 6. Xanax 0.25 mg p.r.n. 7. Zyrtec 10 mg daily. 8. Metronidazole lotion b.i.d. 9. Hydrocortisone with lodoquinol cream daily. 10.Multivitamin daily. 11.Calcium 600 mg with vitamin D3 b.i.d. ALLERGIES: SULFA which causes hives. 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 SOCIAL HISTORY: She denies tobacco and drug use and has 1-2 alcoholic drinks per year. 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 REVIEW OF SYSTEMS: She has gained about 3 pounds over the last year. She denies respiratory, cardiac or GI problems. PHYSICAL EXAM: Blood pressure 112/60, height 5 feet 3 inches, weight 125 pounds, temperature 97.9, pulse 84.This is a well-developed, well-nourished, white female, who is alert and oriented x3 in no acute distress. HEENT is within normal limits. NECK: Supple without masses or thyromegaly. CHEST: Lungs are clear to auscultation. HEART: Regular rate and rhythm. Breasts are without mass or discharge. Axillary exam is negative for adenopathy. Back negative for CVA tenderness. ABDOMEN: Soft, nontender, without palpable masses. Pelvic exam: External genitalia reveals mild atrophy without lesions. Cervix and vagina reveals jkwb-us-ywbabnbq atrophy without lesions. There is no evidence of prolapse. The uterus is mid position, nongravid size and nontender. There were no palpable adnexal masses or tenderness. There is no evidence of cystocele with Valsalva. No urinary leakage was demonstrated. Rectovaginal exam is negative for mass or tenderness and is negative for occult blood. There is good sphincter tone. EXTREMITIES: Nontender. IMPRESSION: 1. 60-year-old, menopausal female, with normal gynecologic exam. 2. Overactive bladder with occasional urinary urgency without any significant physical findings at this time. 3. History of osteoporosis on Evista. PLAN: 1. Pap smear was deferred since she had a normal one last year. 2. Self breast examination was discussed. 3. Mammogram will be done today. 4. Osteoporosis management was discussed. I have again stressed the importance of adequate calcium and vitamin D and regular exercise. I have recommended bone density testing and a slip was given to the patient for this. If there is bone strength loss, we will consider other options for her osteoporosis such as a bisphosphonate or Prolia. 5. She will return in 1 year. MMODL / IJN: [id number] /
--- NOTE | 2016-12-27 10:04 | MM ---
Reason for exam: screening (asymptomatic). Last mammogram was performed 5 months ago. History: Patient is postmenopausal. Physical Findings: A clinical breast exam by your physician is recommended on an annual basis and results should be correlated with mammographic findings. MG 3D Screening Mammo W/Cad Bilateral CC and MLO view(s) were taken. Prior study comparison: July 20, 2016, right breast MG 3d diag mammo w/cad RT. December 14, 2015, bilateral MG 3d screening mammo w/cad. There are scattered fibroglandular densities. No significant changes when compared with prior studies. ASSESSMENT: Benign, BI-RAD 2 RECOMMENDATION: Routine screening mammogram of both breasts in 1 year.
== END ==
LOC: WWCWWP 09:01
PROVIDERS: ATTEND Obstetrics & Gynecology
DX: Z12.31 Encounter for screening mammogram for malignant neoplasm of breast (principal)
CPT/HCPCS: 77063; G0202

== ENCOUNTER → 2017-01-11 | Outpatient (CLI) | payer MEDICARE, BC ==
--- NOTE | 2017-01-11 11:37 | BD ---
EXAMINATION TYPE: MG DEXA axial skeleton. DATE OF EXAM: 01/11/2017 COMPARISON: NONE CLINICAL HISTORY: Postmenopausal screening. Osteoporosis. Height: 63 inches Weight: 123 pounds FRAX RISK QUESTIONS: Alcohol (3 or more units per day): no Family History (Parent hip fracture): no Glucocorticoids (More than 3mos): not at present (Ex: prednisone, prednisolone, methylprednisolone, dexamethasone, and hydrocortisone). History of Fracture in Adulthood: yes, ankle about age 54 Secondary Osteoporosis: 1. Type 1 Diabetes: no 2. Hyperthyroidism: no 3. Menopause before 45: no 4. Malnutrition: no 5. Chronic liver disease: no Rheumatoid Arthritis: no Current Tobacco Use: no RISK FACTORS HISTORY OF: History of Wrist Fracture: forearm When: as a child Family History of Osteoporosis: yes Active: yes Diet low in dairy products/other sources of calcium: no Postmenopausal woman: yes Take estrogen and/or progesterone medications: no Lost more than 2 inches in height since high school: no Frequent falls: occasionally Poor Health: perhaps Hyperparathyroidism: no Adrenal Insufficiency: no MEDICATIONS: Prednisone or other steroids: not now How Long: Thyroid Medications: no Osteoporosis Medications: yes Which medication: Evista How Long: over 5 years Additional Medications: calcium & Vitamin D Additional History: MS since 1999; Raynaud's Disease EXAM MEASUREMENTS: Bone mineral densitometry was performed using the [employer] original products System. Bone mineral density as measured about the Lumbar spine is: ----- L1-L4(G/cm2): 0.813 T Score Values are as follows: ----- L2: -3.2 ----- L3: -3.0 ----- L4: -3.4 ----- L1-L4: -3.1 Bone mineral density has: Increased 8.5% since study of: 11/19/2014 Bone mineral density about the R hip (g/cm2): 0.706 Bone mineral density about the L hip (g/cm2): 0.691 T Score values are as follows: -----R Neck: -2.4 -----L Neck: -2.5 -----R Total: -2.7 -----L Total: -2.5 Bone mineral density has: Increased 6.3% since study of: 11/19/2014 IMPRESSION: Osteoporosis (T Score less than -2.5) as noted by T Score values at the There is increased fracture risk and therapy is usually indicated based on age. Re-Screen 1-2 years. NOTE: T-SCORE=SD OF THE YOUNG ADULT MEAN.
== END | disposition home or self-care (01) ==
LOC: RADBDWWP 07:53
PROVIDERS: ATTEND Obstetrics & Gynecology
DX: M81.0 Age-related osteoporosis without current pathological fracture (principal)
CPT/HCPCS: 77080

== ENCOUNTER → 2017-09-15 | Outpatient (CLI) | payer MEDICARE, BC ==
--- NOTE | 2017-09-15 19:48 | MR ---
EXAMINATION TYPE: MR brain wo/w con DATE OF EXAM: 09/15/2017 COMPARISON: 03/27/2017 HISTORY: MS TECHNIQUE: Multiplanar, multisequence images of the brain and brainstem is performed without and with IV contras t, utilizing 5.5 mL intravenous Gadavist gadolinium contrast is administered intravenously. Demyelin ating disease protocol with additional Sagittal Flair sequence performed. FINDINGS: T2 Lesions Present : Yes Approximate Number of Lesions: 3 within the right hemisphere and 6 within the left hemisphere. Locations Identified : Pericallosal and periventricular Size of Reference Lesion(s): 1. 0.9 cm x 0.9 cm x 0.9 cm on axial image 19 and sagittal image 23 within the right parietal lobe i n the periventricular white matter. 2 0.6 cm x 0.4 cm x 0.7 cm on axial image 18 and sagittal image 12 within the left frontal perivent ricular white matter Enhancing Lesion(s) Present: No T1 Hypointense Lesion(s) Present: Yes Change from Prior: Stable Diffusion weighted images demonstrate no evidence of a recent infarct or other diffusion abnormality. There is evolving encephalomalacia are again seen within the occipital lobes bilaterally that are no nenhancing. These are unchanged from the prior of 03/27/2017. There is no worrisome extra-axial fluid collection. The ventricular system and cisternal spaces are normal in size and appearance. The bra in volume is age appropriate. Midline structures demonstrate normal morphology. 3 mm nonenhancing pineal gland cyst is incidentally noted. The craniocervical junction appears within normal limits. Post contrast images demonstrate n o abnormal enhancement. The dural venous sinuses appear patent. Mild mucosal thickening is seen withi n the right maxillary sinus and ethmoid sinuses. Cystic lesion, likely mucosal retention cyst is agai n noted within the posterior nasopharynx. Remaining visualized paranasal sinuses are well aerated as are the mastoid air cells. Orbits are symmetric. IMPRESSION: 1. Stable bilateral white matter changes in keeping with the patient's history of multiple sclerosis. No plaques that restricted diffusion or enhancement to indicate active demyelination. 2. Unchanged encephalomalacia within the bilateral occipital lobes in comparison to the exam of 2016.
== END | disposition home or self-care (01) ==
LOC: RADMRIMAIN 09:51
PROVIDERS: ATTEND Psychiatry & Neurology Neurology
DX: G93.89 Other specified disorders of brain (principal); R90.89 Other abnormal findings on diagnostic imaging of central nervous system; Z86.69 Personal history of other diseases of the nervous system and sense organs
CPT/HCPCS: 82565; 70553; A9581

== ENCOUNTER → 2018-01-09 | Outpatient (CLI) | payer MEDICARE, BC ==
[2018-01-09 09:41] VITALS: BP 117/55; PULSE 89; TEMP 96.1; BMI 21.7
--- NOTE | 2018-01-09 10:34 | P.HPOB ---
History of Present Illness H&P Date: 01/09/18 Chief Complaint: The patient is here for her routine gynecologic exam and mammogram. This is a 62-year-old with an LMP of 2007. The patient is without gynecologic complaints and denies any postmenopausal bleeding. Review of Systems We has been stable. She denies respiratory or G.I. problems. Cardiac: she has had occasional brief palpitations and has spoken to Dr. Cabral about this. She denies any fainting, lightheadedness or chest pain. She had noticed some swollen glands on the left side of her neck which was associated with some difficulty chewing one month ago. This resolved and the swelling went down. Past Medical History Past Medical History: GERD/Reflux Additional Past Medical History / Comment(s): osteoporosis, multiple sclerosis, migraines, chronic constipation, overactive bladder, environmental allergies and trigeminal neuralgia. 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 History of Any Multi-Drug Resistant Organisms: None Reported Past Surgical History: Section, Tonsillectomy Additional Past Surgical History / Comment(s): D&C's, sinus surgery, EGD 2015, colonoscopy 2012. 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 - Past Family History Father Family Medical History: CVA/TIA, Diabetes Mellitus Additional Family Medical History / Comment(s): Father of a CVA. 1st cousin had MS. And had bladder cancer. Mother Family Medical History: CVA/TIA Additional Family Medical History / Comment(s): TIAs Medications and Allergies Home Medications Medication Instructions Recorded Confirmed Type ALPRAZolam [Xanax] 0.25 mg PO DAILY PRN 07/20/14 01/09/18 History Amitriptyline HCl [Elavil] 50 mg PO HS 07/20/14 01/09/18 History Cetirizine HCl [Zyrtec] 10 mg PO HS 07/20/14 01/09/18 History Mirabegron [Myrbetriq] 25 mg PO DAILY 07/20/14 01/09/18 History tiZANidine [Zanaflex] 2 mg PO QID 07/20/14 01/09/18 History Ciprofloxacin HCl [Cipro] 250 mg PO BID 05/29/16 01/09/18 History Hydrocortisone/Iodoquinol Crm 1 applic TOPICAL HS 05/29/16 01/09/18 History [Vytone 1%-1%] Multivitamins, Thera [Multivitamin] 1 tab PO DAILY 05/29/16 01/09/18 History Raloxifene [Evista] 60 mg PO DAILY 05/29/16 01/09/18 History metroNIDAZOLE [Metrolotion] 1 applic TOPICAL BID 05/29/16 01/09/18 History Allergies Allergy/AdvReac Type Severity Reaction Status Date / Time Sulfa (Sulfonamide Allergy hives Verified 01/09/18 09:38 Antibiotics) Exam Vital Signs Temp Pulse BP 01/09/18 09:38 96.1 F L 89 117/55 Intake and Output 01/08/18 01/09/18 01/09/18 22:59 06:59 14:59 Other: Weight 55.792 kg Height 5'3", BMI 21.8. This is a well-developed well-nourished white female who is alert and oriented times 3 in no acute distress. HEENT: Within normal limits. NECK: Supple without mass or thyromegaly. There is no palpable lymphadenopathy. The neck is nontender. CHEST AND LUNGS: Clear to auscultation. HEART: Regular rate and rhythm. A single irregular beat consistent with a PVC was noted while listening for approximately 1 minute. BREASTS: Are without mass or discharge. AXILLARY EXAM: Negative for adenopathy. BACK: Negative for CVA tenderness. ABDOMEN: Soft, nontender, without palpable masses. PELVIC EXAM: Normal external genitalia with mild to moderate atrophy. Cervix and vagina appear normal with moderate atrophy. There is no unusual discharge. There is no evidence of prolapse. The uterus is midposition, nongravid size and nontender. There are no palpable adnexal masses or tenderness. RECTAL EXAM: rectovaginal exam is negative for mass or tenderness and is negative for occult blood. EXTREMITIES: Nontender. IMPRESSION: 1. 62-year-old menopausal female with normal gynecologic exam. 2. History of occasional palpitations per the patient with possible PVC times 1 during a 1 minute period of auscultation. PLAN: 1. Pap smear was performed. 2. Self breast awareness was discussed with the patient. 3. Screening mammogram will be done today. 4. The patient was reassured about her episode of swollen lymph nodes in her neck that have resolved. This may have been related to a viral infection or possible sinus infection. Since the symptoms resolved and there is no palpable adenopathy, no action is necessary at this time. She will call her primary care physician and she is having recurrent symptoms. 5. I have recommended that she follow up with Dr. Cabral regarding the palpitations if they are recurrent or if she is having any symptoms such as lightheadedness or fainting. 6. Osteoporosis prevention was discussed. She will continue taking Evista as prescribed by Dr. Cabral. She will plan on repeating bone density testing next year. 7. She will return in one year.
--- NOTE | 2018-01-10 13:52 | MM ---
Reason for exam: screening (asymptomatic). Last mammogram was performed 1 year ago. History: Patient is postmenopausal. Physical Findings: A clinical breast exam by your physician is recommended on an annual basis and results should be correlated with mammographic findings. MG 3D Screening Mammo W/Cad Bilateral CC and MLO view(s) were taken. Prior study comparison: December 26, 2016, bilateral MG 3d screening mammo w/cad. July 20, 2016, right breast MG 3d diag mammo w/cad RT. The breast tissue is heterogeneously dense. This may lower the sensitivity of mammography. There are benign appearing round vascular calcifications bilaterally. There is no discrete abnormality. ASSESSMENT: Benign, BI-RAD 2 RECOMMENDATION: Routine screening mammogram of both breasts in 1 year.
== END | disposition home or self-care (01) ==
LOC: WWCWWP 09:06
PROVIDERS: ATTEND Obstetrics & Gynecology
DX: Z12.31 Encounter for screening mammogram for malignant neoplasm of breast (principal)
CPT/HCPCS: 77063; 77067

== ENCOUNTER → 2018-02-13 | Outpatient (CLI) | payer MEDICARE, BC ==
--- NOTE | 2018-02-13 22:23 | MR ---
EXAMINATION TYPE: MR brain wo/w con DATE OF EXAM: 02/13/2018 COMPARISON: Prior MRI brain September 15, 2017. HISTORY: Multiple sclerosis per order. Symptoms of dizziness per patient. TECHNIQUE: Multiplanar, multisequence images of the brain and brainstem is performed without and with IV contras t, utilizing 5.5 mL intravenous Gadavist contrast is administered intravenously. Demyelinating dise ase protocol with additional Sagittal Flair sequence performed. FINDINGS: T2 Lesions Present : Yes Approximate Number of Lesions: Approximately 8-10 Locations Identified : Scattered Size of Reference Lesion(s): 1. 10 x 8 x 8 mm on axial image 19 and sagittal image 24 right parietal deep white matter lesion stab le 2 5 x 4 x 5 mm on axial image 17 and sagittal image 13 left frontal deep white matter lesions stable Enhancing Lesion(s) Present: No T1 Hypointense Lesion(s) Present: Yes Change from Prior: Stable Diffusion weighted images demonstrate no evidence of a recent infarct or other diffusion abnormality. There is no worrisome extra-axial fluid collection. The ventricular system and cisternal spaces ar e normal in size and appearance. The brain volume is age appropriate. Areas of encephalomalacia infe rior occipital lobe image 14 redemonstrated without significant change or progression. Midline structures demonstrate normal morphology. The craniocervical junction appears within normal limits. Post contrast images demonstrate no abnormal enhancement. The dural venous sinuses appear pa tent. The visualized sinuses are clear and the globes are intact. There is a stable 8 mm cystic lesi on in the posterior nasopharynx axial image 5 perhaps Tornwaldt cyst. IMPRESSION: Mild nonspecific white matter changes redemonstrated may be on basis of patient's known multiple sclerosis. No new or enhancing lesions are seen.
== END | disposition home or self-care (01) ==
LOC: RADMRIMAIN 14:37
PROVIDERS: ATTEND Psychiatry & Neurology Neurology
DX: R90.89 Other abnormal findings on diagnostic imaging of central nervous system (principal); G35 Multiple sclerosis
CPT/HCPCS: 82565; 70553; A9585

== ENCOUNTER → 2018-06-18 | Outpatient (CLI) | payer MEDICARE, BC ==
--- NOTE | 2018-06-18 11:37 | MR ---
EXAMINATION TYPE: MR brain/cspine wo/w DATE OF EXAM: 06/18/2018 COMPARISON: Prior brain MRI 02/13/2018, prior cervical spine MRI dated 05/31/2015 HISTORY: MS TECHNIQUE: Multiplanar, multisequence images of the brain and brainstem, cervical spine is performed without and with IV contrast, utilizing 5.5 mL intravenous Gadavist . FINDINGS: Brain MRI: Diffusion weighted images demonstrate no evidence of a recent infarct or other diffusion a bnormality. There is no extra-axial fluid collection or significant white matter or brain signal abn ormality. The ventricular system and cisternal spaces are normal in size and appearance. The brain volume is age appropriate. Midline structures demonstrate normal morphology. The craniocervical junction appears within normal limits. Post contrast images demonstrate no abnormal enhancement. The dural venous sinuses appear pa tent. The visualized sinuses are clear and the globes are intact. IMPRESSION: Stable brain MRI Cervical spine MRI: There is no interval change. Cord signal abnormalities are stable. Spondylosis at C5-6 with associated loss of disc height is again noted. Cervical vertebral bodies show preserved he ight and alignment, bone marrow signal. No significant spinal stenosis. Some foraminal encroachment p resent on the left at C5-6 is stable. No abnormal enhancement. IMPRESSION: Stable cervical spine MRI.
== END | disposition home or self-care (01) ==
LOC: RADMRIMAIN 08:33
PROVIDERS: ATTEND Psychiatry & Neurology Neurology
DX: G35 Multiple sclerosis (principal); R53.83 Other fatigue; R20.2 Paresthesia of skin; K21.9 Gastro-esophageal reflux disease without esophagitis; G50.0 Trigeminal neuralgia
CPT/HCPCS: 82565; 70553; 72156; 36415; A9585

== ENCOUNTER → 2018-11-04 | Outpatient (CLI) | payer MEDICARE, BC ==
--- NOTE | 2018-11-04 13:15 | MR ---
EXAMINATION TYPE: MR brain wo/w con DATE OF EXAM: 11/04/2018 COMPARISON: 06/18/2018 HISTORY: MS TECHNIQUE: Multiplanar, multisequence images of the brain and brainstem is performed without and with IV contras t, utilizing 5.5 mL intravenous Gadavist . FINDINGS: Diffusion weighted images demonstrate no evidence of a recent infarct or other diffusion ab normality. There is a 1 cm cyst in the nasopharynx most likely in the basis of a Thornwaldt cyst. There is mild generalized degenerative change. Ventricular system is midline. No mass effect or displacement. There is areas of abnormal signal with in the occipital lobe posteriorly within both cerebral hemispheres. Correlate for previous ischemia. Area of abnormal signal noted in the left basal ganglia suggestive of remote lacunar infarct. Midline structures demonstrate normal morphology. The craniocervical junction appears within normal limits. Post contrast images demonstrate no abnormal enhancement. The dural venous sinuses appear pa tent. Changes of chronic sinusitis noted. White matter: There are approximately 5 focal areas of abnormal signal scattered throughout the white matter bilate rally. The largest measures 8.4 mm in the right posterior parietal white matter. No lesions perpendicular to ventricular system. No callosal lesions No enhancing lesions. Findings are similar to the prior exam IMPRESSION: 1. Stable encephalomalacia posterior occipital lobe bilaterally suggestive of remote ischemia. 2. Nonspecific mild white matter changes. Findings are stable from the prior exam. No enhancing lesio ns. Differential diagnosis includes remote microvascular ischemia, demyelinating process, Lyme's dise ase, vasculitis, or hypertension.
== END | disposition home or self-care (01) ==
LOC: RADMRIMAIN 11:57
PROVIDERS: ATTEND Psychiatry & Neurology Neurology
DX: G93.89 Other specified disorders of brain (principal); R90.89 Other abnormal findings on diagnostic imaging of central nervous system; I67.82 Cerebral ischemia; G37.9 Demyelinating disease of central nervous system, unspecified; A69.20 Lyme disease, unspecified; I67.7 Cerebral arteritis, not elsewhere classified
CPT/HCPCS: 70553; A9585

== ENCOUNTER → 2018-12-30 | Outpatient (CLI) | payer MEDICARE, BC ==
--- NOTE | 2018-12-30 15:28 | XR ---
EXAMINATION TYPE: XR shoulder complete LT DATE OF EXAM: 12/30/2018 CLINICAL HISTORY: Left shoulder pain for a few weeks. TECHNIQUE: Three views of the left shoulder are obtained. COMPARISON: None. FINDINGS: There is no acute fracture/dislocation evident in the left shoulder. The acromioclavicula r and glenohumeral joint spaces appear within normal limits. The visualized ribs are intact and unre markable. IMPRESSION: As above.
== END | disposition home or self-care (01) ==
LOC: RADXRMAIN 15:06
PROVIDERS: ATTEND Internal Medicine
DX: M25.512 Pain in left shoulder (principal)

== ENCOUNTER → 2019-02-25 | Outpatient (CLI) | payer MEDICARE, BC ==
[2019-02-25 10:31] VITALS: BP 115/73; PULSE 75; RESP 16; TEMP 97.5; BMI 21.6
--- NOTE | 2019-02-25 11:17 | P.HPOB ---
History of Present Illness H&P Date: 02/25/19 Chief Complaint: The patient is here for her routine gynecologic exam and ma mmogram. This is a 63-year-old 011 with an LMP of 2007. The patient is without gynecologic complaints and denies any postmenopausal bleeding. Review of Systems The patient's weight has been stable over the last year. She denies respiratory, cardiac, or G.I. problems. She has tried to eat lots of fruits and vegetables to avoid constipation which has been a problem in the past. Past Medical History Past Medical History: GERD/Reflux, Neurologic Disorder Additional Past Medical History / Comment(s): osteoporosis, multiple sclerosis, migraines, chronic constipation, overactive bladder, environmental allergies and trigeminal neuralgia. 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 History of Any Multi-Drug Resistant Organisms: None Reported Past Surgical History: Section, Tonsillectomy Additional Past Surgical History / Comment(s): D&C's, sinus surgery, EGD 2015, colonoscopy 2012(next after 10yrs). Past Anesthesia/Blood Transfusion Reactions: Motion Sickness, Postoperative Nausea & Vomiting (PONV) Past Psychological History: No Psychological Hx Reported Additional Psychological History / Comment(s): Pt resides with her spouse. She normally is independent-no assistive device and she drives. Smoking Status: Former smoker Past Alcohol Use History: Rare (5 per year) Additional Past Alcohol Use History / Comment(s): Pt states she started smoking as a late teen and quit in 1977. 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 - Past Family History Father Family Medical History: CVA/TIA, Diabetes Mellitus Additional Family Medical History / Comment(s): Father of a CVA. 1st cousin had MS. And had bladder cancer. Mother Family Medical History: CVA/TIA Additional Family Medical History / Comment(s): TIAs Medications and Allergies Home Medications Medication Instructions Recorded Confirmed Type ALPRAZolam [Xanax] 0.25 mg PO DAILY PRN 07/20/14 02/25/19 History Amitriptyline HCl [Elavil] 50 mg PO HS 07/20/14 02/25/19 History Cetirizine HCl [Zyrtec] 10 mg PO HS 07/20/14 02/25/19 History Mirabegron [Myrbetriq] 25 mg PO DAILY 07/20/14 02/25/19 History tiZANidine [Zanaflex] 2 mg PO QID 07/20/14 02/25/19 History Hydrocortisone/Iodoquinol Crm 1 applic TOPICAL HS 05/29/16 02/25/19 History [Vytone 1%-1%] Multivitamins, Thera [Multivitamin] 1 tab PO DAILY 05/29/16 02/25/19 History Raloxifene [Evista] 60 mg PO DAILY 05/29/16 02/25/19 History metroNIDAZOLE [Metrolotion] 1 applic TOPICAL BID 05/29/16 02/25/19 History Calcium Carbonate/Vitamin D3 1 each PO DAILY 02/25/19 02/25/19 History [Calcium 500-Vit D3 600 Tablet] Cholecalciferol [Vitamin D3 (25 1,000 unit PO DAILY 02/25/19 02/25/19 History Mcg = 1000 Iu)] Tysabri 1 bag IV QMONTH 02/25/19 02/25/19 History Allergies Allergy/AdvReac Type Severity Reaction Status Date / Time Sulfa (Sulfonamide Allergy hives Verified 02/25/19 10:31 Antibiotics) Exam Vital Signs Temp Pulse Resp BP Pulse Ox 02/25/19 10:24 97.5 F L 75 16 115/73 100 Intake and Output 02/24/19 02/25/19 02/25/19 22:59 06:59 14:59 Other: Weight 55.338 kg Height 5 feet 3 inches, weight 122 pounds, BMI 21.6. This is a well-developed well-nourished white female who is alert and oriented times 3 in no acute distress. HEENT: Within normal limits. NECK: Supple without mass or thyromegaly. CHEST AND LUNGS: Clear to auscultation. HEART: Regular rate and rhythm. BREASTS: Are without mass or discharge. AXILLARY EXAM: Negative for adenopathy. BACK: Negative for CVA tenderness. ABDOMEN: Soft, nontender, without palpable masses. PELVIC EXAM: Normal external genitalia with mild atrophy. Cervix and vagina appear normal with mild atrophy. There is no unusual discharge. There is no evidence of prolapse. The uterus is midposition, nongravid size and nontender. There are no palpable adnexal masses or tenderness. RECTAL EXAM: Rectovaginal exam is negative for mass or tenderness and is negative for occult blood. EXTREMITIES: Nontender. IMPRESSION: 1. 63-year-old menopausal female with normal gynecologic exam. 2. History of osteoporosis on Evista. PLAN: 1. Pap smear was deferred since she had a normal one on 01/09/2018. 2. Self breast awareness was discussed with the patient. 3. Screening mammogram will be done today. 4. Osteoporosis management was discussed. I have stressed the importance of adequate calcium, vitamin D and regular exercise. Recommended amounts of calcium and vitamin D were also discussed. Bone density testing will be done today. She continues to take Evista through Dr. Cabral, her primary care physician. 5. She was advised to return in one year for her annual well woman exam.
--- NOTE | 2019-02-25 12:49 | BD ---
EXAMINATION TYPE: Axial Bone Density DATE OF EXAM: 02/25/2019 COMPARISON: 2017 CLINICAL HISTORY: post menopausal` Height: 5'2 1/2 Weight: 120 FRAX RISK QUESTIONS: History of Fracture in Adulthood: y Secondary Osteoporosis: RISK FACTORS HISTORY OF: MEDICATIONS: Osteoporosis Medications: Which medication: Evista How Lon-8 years Additional Medications: infusion for MS , muscle relaxer, bladder control Additional History: EXAM MEASUREMENTS: Bone mineral densitometry was performed using the DPSI System. Bone mineral density as measured about the Lumbar spine is: ----- L1-L4(G/cm2): 0.806 T Score Values are as follows: ----- L2: -3.4 ----- L3: -3.0 ----- L4: -3.6 ----- L1-L4: -3.1 Bone mineral density has: Decreased -1.7% since study of: 01/11/2017 Bone mineral density about the R hip (g/cm2): 0.651 Bone mineral density about the L hip (g/cm2): 0.683 T Score values are as follows: -----R Neck: -1.1 -----L Neck: -0.9 -----R Total: -2.7 -----L Total: -2.7 Bone mineral density has: Decreased -1.6% since study of: 01/11/2017 IMPRESSION: Osteoporosis (T Score less than -2.5) remain present. There remains increased fracture risk and therapy is usually indicated based on age. Re-Screen 1-2 years. NOTE: T-SCORE=SD OF THE YOUNG ADULT MEAN.
--- NOTE | 2019-02-27 09:48 | MM ---
Reason for exam: screening (asymptomatic). Last mammogram was performed 1 year and 2 months ago. History: Patient is postmenopausal. Physical Findings: A clinical breast exam by your physician is recommended on an annual basis and results should be correlated with mammographic findings. MG 3D Screening Mammo W/Cad Bilateral CC and MLO view(s) were taken. Prior study comparison: January 09, 2018, bilateral MG 3d screening mammo w/cad. December 26, 2016, bilateral MG 3d screening mammo w/cad. There are scattered fibroglandular densities. Stable benign calcifications. There is no discrete abnormality. No significant changes when compared with prior studies. ASSESSMENT: Benign, BI-RAD 2 RECOMMENDATION: Routine screening mammogram of both breasts in 1 year.
== END | disposition home or self-care (01) ==
LOC: WWCWWP 10:17
PROVIDERS: ATTEND Obstetrics & Gynecology
DX: Z12.31 Encounter for screening mammogram for malignant neoplasm of breast (principal); M81.8 Other osteoporosis without current pathological fracture
CPT/HCPCS: 77063; 77067; 77080

== ENCOUNTER → 2019-03-10 | Outpatient (CLI) | payer MEDICARE, BC ==
--- NOTE | 2019-03-10 13:28 | MR ---
MR brain without contrast HISTORY: Multiple sclerosis Multiplanar multisequence imaging through the brain Correlation to prior MRI dated 05/30/2016 The restricted diffusion seen on prior exam within the distribution of the occipital lobes show some residual minimal signal suggestive of remote ischemic insult. Some periventricular white matter incre ased signal on inversion recovery T2-weighted sequences is again noted. There is no hemorrhage or hyd rocephalus. Corpus callosum, pituitary, cervical medullary junction, cerebellopontine angles are unre markable. There are normal vascular flow voids. 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 Orbi ts show symmetric appearance. Mild inflammatory change present in the ethmoid air cells. IMPRESSION: Findings may represent chronic small vessel ischemic changes rather than findings due to multiple sclerosis "additional findings appear essentially stable and could be indicative of multiple sclerosis.. There is some improvement in the abnormal signal seen on prior exam.
== END | disposition home or self-care (01) ==
LOC: RADMRIMAIN 10:33
PROVIDERS: ATTEND Psychiatry & Neurology Neurology
DX: G35 Multiple sclerosis (principal)
CPT/HCPCS: 70551

== ENCOUNTER → 2019-07-17 | Outpatient (CLI) | payer MEDICARE, BC ==
--- NOTE | 2019-07-17 11:49 | MR ---
EXAMINATION TYPE: MR brain/cspine wo DATE OF EXAM: 07/17/2019 COMPARISON: 06/18/2018 HISTORY: MS CONTRAST: Performed utilizing 0 mL intravenous Gadavist gadolinium contrast. TECHNIQUE: Multiplanar, multisequence imaging of the brain is performed on a 3.0 Izzy magnet. Demye linating disease protocol with additional Sagittal Flair sequence is performed. Study is performed wi thin 24 hours of arrival to the hospital. FINDINGS: T2 White Matter Lesions Present : Yes Approximate Number of Lesions: Multiple scattered Locations Identified : Subcortical white matter, right occipital lobe, left tay radiata and basal ganglion Size of Largest Lesion(s): 1. 1.0 x 0.9 x 0.8 cm. Location: Right trilobar region Sequence 501 Image 19 (axial) and Sequence 60 1 Image 25r (sagittal). 2. 0.3 x 0.7 x 0.6 cm. Location: Left frontal lobe centrum semiovale Sequence 501 Image 21 (axial) and Sequence 601 Image 14 (sagittal). Change from Prior: Similar to slight improvement Diffusion-weighted imaging is performed. No abnormal hyperintensity is present to suggest an acute i ntracranial infarct or acute ischemic change. Ventricles and sulci are appropriate for the patient age. There are no abnormal extra-axial fluid collections. The ventricular system and cisternal spaces are normal in size and appearance. The brain volume is age appropriate. The craniocervical junction gage ears within normal limits. The dural venous sinuses appear patent. No abnormal enhancement is present on post contrast images. . Retention cyst may be within the spheno id sinus. Portions of the orbits included within the [id number] are unremarkable. Mastoid air cell s appear clear. IMPRESSION: 1. Multiple bilateral scattered white matter changes appear stable from comparison. Findings can be compatible with, although not diagnostic of, multiple sclerosis. EXAMINATION TYPE: MR brain/cspine wo DATE OF EXAM: 07/17/2019 COMPARISON: 06/18/2018 HISTORY: MS CONTRAST: Performed utilizing 0 mL intravenous Gadavist gadolinium contrast. TECHNIQUE: Multiplanar multiecho imaging on a 3.0 Izzy magnet is performed through the cervical spin e. FINDINGS: The craniovertebral junction is normal. Vertebral body alignment is normal. Close evaluation is performed through the spinal cord. Some very faint ill-defined hyperintensity ma y be present within the posterior left spinal cord. Series 04/23/2000, image 7, series 1301, image 34. This would measure approximately 0.9 cm in craniocaudal by 0.2 cm in AP dimension by 0.4 cm transvers e. This is not clearly evident on the previous exam could be a multiple sclerosis plaque. No additional suspicious signal abnormality within the spinal cord is evident. C5-6: Some endplate spurring appears to be present with mild anterior thecal sac compression. This ap pears greater in the sagittal plane. No cord contact is evident. No spinal canal stenosis is present. Neural foramen are patent. Remaining disc levels have preserved height. Vertebral body heights are preserved. Alignment is kristen l. No suspicious focal disc herniations or significant disc bulges are evident. No foraminal stenosis is present. IMPRESSIONS: 1. There may be a new subtle posterior left multiple sclerosis plaque posterior to the C4 level. 2. Endplate spurring C5-6 with degenerative disc changes. No cord contact or stenosis is evident.
== END | disposition home or self-care (01) ==
LOC: RADMRIMAIN 10:29
PROVIDERS: ATTEND Nurse Practitioner Family
DX: R90.82 White matter disease, unspecified (principal); M50.322 Other cervical disc degeneration at C5-C6 level; G50.0 Trigeminal neuralgia; G43.019 Migraine without aura, intractable, without status migrainosus; R53.83 Other fatigue
CPT/HCPCS: 70551; 72141

== ENCOUNTER → 2019-08-20 | Outpatient (CLI) | payer MEDICARE, BC ==
[2019-08-20 11:08] LABS: Basophils % (A) 1 %; Eosinophils # (A) 0.2 k/uL (0-0.7); Eosinophils % (A) 2 %; HCT 41.1 % (34.0-46.0); HGB 13.3 gm/dL (11.4-16.0); Lymphocytes # (A) 2.5 k/uL (1.0-4.8); Lymphocytes % (A) 34 %; MCH 30.5 pg (25.0-35.0); MCHC 32.4 g/dL (31.0-37.0); MCV 94.2 fL (80.0-100.0); Mean Platelet Volume 7.4; Monocytes # (A) 0.4 k/uL (0-1.0); Monocytes % (A) 5 %; Neutrophils # (A) 4.2 k/uL (1.3-7.7); Neutrophils % (A) 56 %; Platelet Count 248 k/uL (150-450); RBC 4.37 m/uL (3.80-5.40); RDW 13.9 % (11.5-15.5); WBC 7.4 k/uL (3.8-10.6)
[2019-08-20 13:02] LABS: Erythrocyte Sedimentation Rate 9 mm/hr (0-20)
[2019-08-20 16:29] LABS: ALT 16 U/L (8-44); AST 24 U/L (13-35); C Reactive Protein <0.4 mg/dL (0.0-0.8)
== END | disposition home or self-care (01) ==
LOC: LABWHC1 10:07
PROVIDERS: ATTEND Psychiatry & Neurology Neurology
DX: G35 Multiple sclerosis (principal); G50.0 Trigeminal neuralgia; G43.019 Migraine without aura, intractable, without status migrainosus; R53.83 Other fatigue
CPT/HCPCS: 36415; 84450; 84460; 85025; 85652; 86140

== ENCOUNTER → 2019-12-09 | Outpatient (CLI) | payer MEDICARE, BC ==
--- NOTE | 2019-12-10 06:27 | MR ---
EXAMINATION TYPE: MR brain wo con DATE OF EXAM: 12/09/2019 COMPARISON: MRI brain March 10, 2019. HISTORY: MS follow-up, no new symptoms TECHNIQUE: Multiplanar, multisequence images of the brain and brainstem is performed without IV contrast. Demye linating disease protocol with additional Sagittal Flair sequence performed. FINDINGS: T2 Lesions Present : Yes Approximate Number of Lesions: Less than 10 Locations Identified : Scattered Size of Reference Lesion(s): 1. 1.3 x 0.8 x 1.4 cm on axial image 16 and sagittal image 25 right occipital subcortical lesions sta ble 2 0.6 x 0.3 x 0.6 cm on axial image 20 and sagittal image 14 left frontal deep white matter lesions s table Enhancing Lesion(s) Present: N/A T1 Hypointense Lesion(s) Present: Yes Change from Prior: Stable Diffusion weighted images demonstrate no evidence of a recent infarct or other diffusion abnormality. There is no worrisome extra-axial fluid collection. Mild/moderate bilateral generalized frontal lob e atrophy redemonstrated. Ventricular size stable. Asymmetry to the ventricular system remains prese nt. Midline structures demonstrate normal morphology. The craniocervical junction appears within normal limits. Normal vascular flow voids are redemonstrated. The visualized sinuses are clear and the globe s are intact. Probable 9 mm Thornwaldt cyst in the posterior nasopharynx axial image 5 redemonstrated . IMPRESSION: [id number] nonspecific white matter changes as detailed above may be on basis of brianne montalvo's known multiple sclerosis. Findings overall stable. No definitive new lesions seen.
== END | disposition home or self-care (01) ==
LOC: RADMRIMAIN 16:55
PROVIDERS: ATTEND Psychiatry & Neurology Neurology
DX: G35 Multiple sclerosis (principal)
CPT/HCPCS: 70551

== ENCOUNTER → 2020-03-03 | Outpatient (CLI) | payer MEDICARE, BC ==
[2020-03-03 11:40] VITALS: BP 112/74; PULSE 74; RESP 18; TEMP 97.6
--- NOTE | 2020-03-03 12:34 | P.HPOB ---
History of Present Illness H&P Date: 03/03/20 Chief Complaint: The patient is here for her routine gynecologic exam and ma mmogram. This is a 64-year-old with an LMP of 2007. The patient is without gynecologic complaints and denies any postmenopausal bleeding. Review of Systems The patient has gained 4 pounds over the last year. She denies respiratory, cardiac, or G.I. problems. Past Medical History Past Medical History: GERD/Reflux, Neurologic Disorder Additional Past Medical History / Comment(s): osteoporosis, multiple sclerosis, migraines, chronic constipation, overactive bladder, environmental allergies and trigeminal neuralgia. 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 History of Any Multi-Drug Resistant Organisms: None Reported Past Surgical History: Section, Tonsillectomy Additional Past Surgical History / Comment(s): D&C's, sinus surgery, EGD 2015, colonoscopy 2012(next after 10yrs). Past Anesthesia/Blood Transfusion Reactions: Motion Sickness, Postoperative Nausea & Vomiting (PONV) Past Psychological History: No Psychological Hx Reported Additional Psychological History / Comment(s): Pt resides with her spouse. She normally is independent-no assistive device and she drives. Smoking Status: Former smoker Past Alcohol Use History: Rare (3 per Year) Additional Past Alcohol Use History / Comment(s): Pt states she started smoking as a late teen and quit in 1977. Past Drug Use History: None Reported Additional History: She has been since 1976 and is not sexually active. She is retired. - Past Family History Father Family Medical History: CVA/TIA, Diabetes Mellitus Additional Family Medical History / Comment(s): Father of a CVA. 1st cousin had MS. And had bladder cancer. Mother Family Medical History: CVA/TIA Additional Family Medical History / Comment(s): TIAs Medications and Allergies Home Medications Medication Instructions Recorded Confirmed Type ALPRAZolam [Xanax] 0.25 mg PO DAILY PRN 07/20/14 03/03/20 History Amitriptyline HCl [Elavil] 25 mg PO HS 07/20/14 03/03/20 History Cetirizine HCl [Zyrtec] 10 mg PO HS 07/20/14 03/03/20 History Mirabegron [Myrbetriq] 50 mg PO DAILY 07/20/14 03/03/20 History tiZANidine [Zanaflex] 2 mg PO QID 07/20/14 03/03/20 History Hydrocortisone/Iodoquinol Crm 1 applic TOPICAL HS 05/29/16 03/03/20 History [Vytone 1%-1%] Multivitamins, Thera [Multivitamin] 1 tab PO DAILY 05/29/16 03/03/20 History Raloxifene [Evista] 60 mg PO DAILY 05/29/16 03/03/20 History metroNIDAZOLE [Metrolotion] 1 applic TOPICAL BID 05/29/16 03/03/20 History Calcium Carbonate/Vitamin D3 1 each PO DAILY 02/25/19 03/03/20 History [Calcium 500-Vit D3 600 Tablet] Cholecalciferol [Vitamin D3 (25 1,000 unit PO DAILY 02/25/19 03/03/20 History Mcg = 1000 Iu)] Tysabri 1 bag IV QMONTH 02/25/19 03/03/20 History Allergies Allergy/AdvReac Type Severity Reaction Status Date / Time Sulfa (Sulfonamide Allergy hives Verified 03/03/20 11:44 Antibiotics) Exam Vital Signs Temp Pulse Resp BP Pulse Ox 03/03/20 11:20 97.6 F 74 18 112/74 100 Intake and Output 03/02/20 03/03/20 03/03/20 22:59 06:59 14:59 Other: Weight 57.153 kg Height 5 feet 3-1/2 inches, weight 126 pounds, BMI 22.0. This is a well-developed well-nourished white female who is alert and oriented times 3 in no acute distress. HEENT: Within normal limits. NECK: Supple without mass or thyromegaly. CHEST AND LUNGS: Clear to auscultation. HEART: Regular rate and rhythm. BREASTS: Are without mass or discharge. AXILLARY EXAM: Negative for adenopathy. BACK: Negative for CVA tenderness. ABDOMEN: Soft, nontender, without palpable masses. PELVIC EXAM: Normal external genitalia with mild to moderate atrophy. Cervix and vagina appear normal with mild to moderate atrophy. There is no unusual discharge. There is no evidence of prolapse. The uterus is midposition, nongravid size and nontender. There are no palpable adnexal masses or tenderness. RECTAL EXAM: Rectovaginal exam is negative for mass or tenderness and is negative for occult blood. EXTREMITIES: Nontender. IMPRESSION: 1. 64-year-old menopausal female with normal gynecologic exam. 2. History of osteoporosis who is taking Evista for this through her PCP. PLAN: 1. Pap smear was performed. I will review Dr. Willis's chart and after the current Pap smear is reviewed I will decide if we can discontinue Pap smears. 2. Self breast awareness was discussed with the patient. 3. Screening mammogram will be done today. 4. Osteoporosis management was discussed. I have stressed the importance of adequate calcium, vitamin D and regular exercise. Recommended amounts of calcium and vitamin D were also discussed. She will continue to take at least as prescribed by her PCP. I recommended repeating bone density testing in approximately 1 year. 5. The patient was advised to return in 1-2 years for her well woman examination.
--- NOTE | 2020-03-04 10:50 | MM ---
Reason for exam: screening (asymptomatic). Last mammogram was performed 1 year ago. History: Patient is postmenopausal. Physical Findings: A clinical breast exam by your physician is recommended on an annual basis and results should be correlated with mammographic findings. MG 3D Screening Mammo W/Cad Bilateral CC and MLO view(s) were taken. Prior study comparison: February 25, 2019, bilateral MG 3d screening mammo w/cad. January 09, 2018, bilateral MG 3d screening mammo w/cad. There are scattered fibroglandular densities. There are benign appearing round vascular calcifications bilaterally. There is no discrete abnormality. ASSESSMENT: Benign, BI-RAD 2 RECOMMENDATION: Routine screening mammogram of both breasts in 1 year.
== END | disposition home or self-care (01) ==
LOC: WWCWWP 11:11
PROVIDERS: ATTEND Obstetrics & Gynecology
DX: Z12.31 Encounter for screening mammogram for malignant neoplasm of breast (principal)
CPT/HCPCS: 77063; 77067

== ENCOUNTER → 2020-04-13 | Outpatient (CLI) | payer MEDICARE, BC ==
--- NOTE | 2020-04-13 17:18 | MR ---
EXAMINATION TYPE: MR brain wo con DATE OF EXAM: 04/13/2020 COMPARISON: 12/09/2019 and 07/17/2019. HISTORY: 64-year-old female G35, MS. TECHNIQUE: Multiplanar, multisequence images of the brain and brainstem is performed without IV contr ast. Demyelinating disease protocol with additional Sagittal Flair sequence performed. FINDINGS: T2 Lesions Present : Yes Approximate Number of Lesions: 5 in each cerebral hemisphere Locations Identified : Posterior cortical/juxtacortical, left centrum semiovale, bilateral periatrial Size of Reference Lesion(s): 1. 7 x 3 mm in the left centrum semiovale, axial image 22, unchanged. 2. 10 x 8 mm right periatrial, axial image 20, unchanged. 3. 1.4 x 0.6 cm cortical/juxtacortical in the right occipital parietal junction, axial image 16, unch anged. 4. 4 mm lesion within the dorsal upper cervical spinal cord (opposite the C1-C2 level), sagittal FLAI R image 20. Unchanged as compared to 07/17/2019. Not as well seen on 12/09/2019. Enhancing Lesion(s) Present: Not applicable, contrast not administered. T1 Hypointense Lesion(s) Present: Yes, No, N/A Change from Prior: Stable, Increase in number, decrease Diffusion weighted images demonstrate no evidence of a recent infarct or other diffusion abnormality. There is no worrisome extra-axial fluid collection. The ventricular system and cisternal spaces ar e normal in size and appearance. Asymmetrically smaller left lateral ventricle is unchanged, likely normal development variation. There is moderate cerebral cortical atrophy. Midline structures demonstrate normal morphology. The craniocervical junction appears within normal limits. Probable 1 cm Thornwaldt cyst in the posterior nasopharynx remains unchanged. Mild mucosal thickening ethmoid air cells. Globes are intact. IMPRESSION: 1. Redemonstrated mild to moderate scattered burden of T2 bright white matter change. No new or enlar ging lesions identified. 2. A small 4 mm plaque in the dorsal upper cervical spinal cord was also present on 07/17/2019 MRI cer vical spine (though not as well seen on 12/09/2019 MRI brain). 3. Moderate generalized cerebral atrophy. No acute intracranial abnormality seen.
== END | disposition home or self-care (01) ==
LOC: RADMRIMAIN 14:04
PROVIDERS: ATTEND Psychiatry & Neurology Neurology
DX: G31.9 Degenerative disease of nervous system, unspecified (principal); R90.82 White matter disease, unspecified
CPT/HCPCS: 70551

== ENCOUNTER → 2020-09-21 | Outpatient (CLI) | payer MEDICARE, BC ==
--- NOTE | 2020-09-21 13:20 | MR ---
EXAMINATION TYPE: MR brain wo con DATE OF EXAM: 09/21/2020 COMPARISON: Prior MRI brain April 13, 2020 HISTORY: Multiple sclerosis. TECHNIQUE: Multiplanar, multisequence imaging of the brain and brainstem is performed without IV cont rast. Demyelinating disease protocol. FINDINGS: FINDINGS: T2 Lesions Present : Yes Approximate Number of Lesions: Less than 10 Locations Identified : Scattered Size of Reference Lesion(s): 1. 1.3 x 1.1 x 1.5 cm on axial image 14 and sagittal image 25 peripheral right occipital subcortical lesions stable. 2 1.0 x 1.0 x 1.0 cm on axial image 18 and sagittal image 25 deep right parietal lesion stable Enhancing Lesion(s) Present: n/a T1 Hypointense Lesion(s) Present: Yes Change from Prior: Stable Diffusion weighted images demonstrate no evidence of a recent infarct or other diffusion abnormality. There is no worrisome extra-axial fluid collection. The ventricular system and cisternal spaces re main normal in size and appearance. The brain volume is age appropriate. Midline structures demonstrate normal morphology. The craniocervical junction appears within normal limits. Normal vascular flow voids remain present. The visualized sinuses are clear and the globes a re intact. Small Thornwaldt cyst posterior nasopharynx axial image 11 remains present. IMPRESSION: [id number] nonspecific white matter changes redemonstrated may be an basis of patie nt's known multiple sclerosis. No significant change from prior MRIs.
== END | disposition home or self-care (01) ==
LOC: RADMRIMAIN 12:19
PROVIDERS: ATTEND Psychiatry & Neurology Neurology
DX: G35 Multiple sclerosis (principal)
CPT/HCPCS: 70551

== ENCOUNTER → 2021-02-12 | Outpatient (CLI) | payer MEDICARE, BC ==
--- NOTE | 2021-02-12 10:03 | MR ---
EXAMINATION TYPE: MR thoracic spine wo con DATE OF EXAM: 02/12/2021 9:04 AM COMPARISON: NONE HISTORY: Left side numbness, headaches, neck and left shoulder pain/weakness, MS. Multiplanar MultiSpin echo imaging of the thoracic spine was performed. Disc spaces: No evidence for herniation protrusion. Mild decreased signal ossified T10-11 and T11-12 compatible with mild degenerative disc disease. Facet Spinal canal: No evidence for canal stenosis. No intrinsic or extrinsic lesion. Thoracic spinal cord: Thoracic spinal cord is of normal caliber and signal. Paraspinal soft tissues: No evidence for paraspinal mass. No destructive lesions seen. Vertebral segments: No evidence for fracture or bony lesion. IMPRESSION: Mild degenerative disc disease as noted.
--- NOTE | 2021-02-17 10:17 | MR ---
MRI BRAIN WITHOUT CONTRAST CLINICAL HISTORY: MS follow-up TECHNIQUE: Multiplanar, multisequence imaging of the brain and brainstem is performed without IV cont rast. Demyelinating disease protocol with additional Sagittal Flair sequence performed. Comparison: 09/21/2020 FINDINGS: T2 Lesions Present : Yes Approximate Number of Lesions: Less than 10 Locations Identified : Scattered Size of Largest Lesion(s): 1. Largest lesion right occipital subcortical region measures approximately 1.3 cm versus 1.3 cm prev iously. 2. Stable 1 cm right parietal lesion. enhancing Lesion(s) Present: N/A Change from Prior: Stable Diffusion weighted images demonstrate no evidence of a recent infarct or other diffusion abnormality. There is no worrisome extra-axial fluid collection. The ventricular system and cisternal spaces ar e normal in size and appearance. The brain volume is age appropriate. Small incidental Thornwaldt cy st. Midline structures demonstrate normal morphology. The craniocervical junction appears within normal limits. Post contrast images demonstrate no abnormal enhancement. The dural venous sinuses appear pa tent. The visualized sinuses are clear and the globes are intact. IMPRESSION: Stable [id number] nonspecific white matter changes likely on the basis of the provi ded history of multiple sclerosis. EXAMINATION TYPE: MR brain/cspine wo DATE OF EXAM: 02/12/2021 9:04 AM COMPARISON: NONE HISTORY: Left side numbness, headaches, neck and left shoulder pain/weakness, MS. Multiplanar MultiSpin echo imaging of the cervical spine was performed. Comparison: 07/17/2019 C2-C3: No evidence for degenerative disc disease. No disc bulge/herniation or protrusion. No Canal stenosis. Foramina are patent bilaterally. C3-C4: No evidence for degenerative disc disease. No disc bulge/herniation or protrusion. No Canal stenosis. Foramina are patent bilaterally. C4-C5: No evidence for degenerative disc disease. No disc bulge/herniation or protrusion. No Canal stenosis. Foramina are patent bilaterally. C5-C6: Moderate disc desiccation posterior disc bulge. Mild effacement ventral thecal sac. No evidenc e of herniation or central stenosis. No foraminal encroachment. C6-C7: No evidence for degenerative disc disease. No disc bulge/herniation or protrusion. No Canal stenosis. Foramina are patent bilaterally. C7-T1: No evidence for degenerative disc disease. No disc bulge/herniation or protrusion. No Canal stenosis. Foramina are patent bilaterally. Cervical segments are intact. There is normal alignment. Small focus of increased signal noted poste rior cervical spine at the C1 to level as well as at the C3 level. Small plaques of demyelination dif ficult to exclude. Craniovertebral junction relationships are within normal limits. IMPRESSION: 1. Small plaques of demyelination difficult to exclude within the cervical spinal cord as outlined ab ove. 2. Degenerative disc disease and posterior disc bulge at C5-6.
== END | disposition home or self-care (01) ==
LOC: RADMRIMAIN 07:39
PROVIDERS: ATTEND Psychiatry & Neurology Neurology
DX: M51.34 Other intervertebral disc degeneration, thoracic region (principal); G35 Multiple sclerosis; M50.322 Other cervical disc degeneration at C5-C6 level; M50.222 Other cervical disc displacement at C5-C6 level
CPT/HCPCS: 70551; 72141; 72146

== ENCOUNTER → 2021-03-22 | Outpatient (CLI) | payer MEDICARE, BC ==
[2021-03-22 10:45] VITALS: BP 135/79; PULSE 80; RESP 16; TEMP 97.7
--- NOTE | 2021-03-22 11:33 | P.HPOB ---
History of Present Illness H&P Date: 03/22/21 Chief Complaint: The patient is here for her routine gynecologic exam and ma mmogram. This is a 65-year-old 011 with an LMP of 2007. The patient is without gynecologic complaints and denies any postmenopausal bleeding. Review of Systems The patient has lost 4 pounds over the last year. She denies respiratory, cardiac, or G.I. problems. Past Medical History Past Medical History: GERD/Reflux, Neurologic Disorder Additional Past Medical History / Comment(s): osteoporosis, multiple sclerosis, migraines, chronic constipation, overactive bladder, environmental allergies and trigeminal neuralgia. 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 History of Any Multi-Drug Resistant Organisms: None Reported Past Surgical History: Section, Tonsillectomy Additional Past Surgical History / Comment(s): D&C's, sinus surgery, EGD 2015, colonoscopy 2012(next after 10yrs). Past Anesthesia/Blood Transfusion Reactions: Motion Sickness, Postoperative Nausea & Vomiting (PONV) Past Psychological History: No Psychological Hx Reported Additional Psychological History / Comment(s): Pt resides with her spouse. She normally is independent-no assistive device and she drives. Smoking Status: Former smoker Past Alcohol Use History: Rare (3 per year) Additional Past Alcohol Use History / Comment(s): Pt states she started smoking as a late teen and quit in 1977. Past Drug Use History: None Reported Additional History: She has been since 1976 and is not sexually active. She is retired. - Past Family History Father Family Medical History: CVA/TIA, Diabetes Mellitus Additional Family Medical History / Comment(s): Father of a CVA. 1st cousin had MS. And had bladder cancer. Mother Family Medical History: CVA/TIA Additional Family Medical History / Comment(s): TIAs Medications and Allergies Home Medications Medication Instructions Recorded Confirmed Type ALPRAZolam [Xanax] 0.25 mg PO DAILY PRN 07/20/14 03/22/21 History Amitriptyline HCl [Elavil] 25 mg PO HS 07/20/14 03/22/21 History Cetirizine HCl [Zyrtec] 10 mg PO HS 07/20/14 03/22/21 History Mirabegron [Myrbetriq] 50 mg PO DAILY 07/20/14 03/22/21 History tiZANidine [Zanaflex] 2 mg PO QID 07/20/14 03/22/21 History Hydrocortisone/Iodoquinol Crm 1 applic TOPICAL HS 05/29/16 03/22/21 History [Vytone 1%-1%] Multivitamins, Thera [Multivitamin] 1 tab PO DAILY 05/29/16 03/22/21 History Raloxifene [Evista] 60 mg PO DAILY 05/29/16 03/22/21 History metroNIDAZOLE [Metrolotion] 1 applic TOPICAL BID 05/29/16 03/22/21 History Calcium Carbonate/Vitamin D3 1 each PO DAILY 02/25/19 03/22/21 History [Calcium 500-Vit D3 600 Tablet] Cholecalciferol [Vitamin D3 (25 1,000 unit PO DAILY 02/25/19 03/22/21 History Mcg = 1000 Iu)] Tysabri 1 bag IV QMONTH 02/25/19 03/22/21 History Lansoprazole 60 mg PO DAILY 03/22/21 03/22/21 History Allergies Allergy/AdvReac Type Severity Reaction Status Date / Time Sulfa (Sulfonamide Allergy hives Verified 03/22/21 10:39 Antibiotics) Exam Vital Signs Temp Pulse Resp BP Pulse Ox 03/22/21 10:40 97.7 F 80 16 135/79 100 Intake and Output 03/21/21 03/22/21 03/22/21 22:59 06:59 14:59 Other: Weight 55.338 kg Height 5 feet 3 inches, weight 122 pounds, BMI 21.6. This is a well-developed well-nourished white female who is alert and oriented times 3 in no acute distress. HEENT: Within normal limits. NECK: Supple without mass or thyromegaly. CHEST AND LUNGS: Clear to auscultation. HEART: Regular rate and rhythm. BREASTS: Are without mass or discharge. AXILLARY EXAM: Negative for adenopathy. BACK: Negative for CVA tenderness. ABDOMEN: Soft, nontender, without palpable masses. PELVIC EXAM: Normal external genitalia with mild to moderate atrophy. Cervix and vagina appear normal with moderate atrophy. There is no unusual discharge. There is no evidence of prolapse. The uterus is midposition, nongravid size and nontender. There are no palpable adnexal masses or tenderness. RECTAL EXAM: Rectovaginal exam is negative for mass or tenderness and is negative for occult blood. EXTREMITIES: Nontender. IMPRESSION: 1. 65-year-old menopausal female with normal gynecologic exam. 2. History of osteoporosis on Evista. PLAN: 1. Pap smears have been discontinued. Dr. Willis's chart has been reviewed and she has had adequate screening in the past. She has no history of cervical neoplasia. 2. Self breast awareness was discussed with the patient. We have also discussed symptoms associated with inflammatory breast cancer. 3. Screening mammogram will be done today. 4. Osteoporosis management was discussed. I have stressed the importance of adequate calcium, vitamin D and regular exercise. Recommended amounts of calcium and vitamin D were also discussed. She will continue to take Evista through her PCP. Her last bone density test was 2 years ago and I have recommended repeating this. The order slip was given to the patient for this. 5. She has completed her Covid vaccination series. 6. The patient was advised to return in 1-2 years for her well woman examination.
--- NOTE | 2021-03-24 11:45 | MM ---
Reason for exam: screening (asymptomatic). Last mammogram was performed 1 year and 1 month ago. History: Patient is postmenopausal. Physical Findings: A clinical breast exam by your physician is recommended on an annual basis and results should be correlated with mammographic findings. MG 3D Screening Mammo W/Cad Bilateral CC and MLO view(s) were taken. Prior study comparison: March 03, 2020, bilateral MG 3d screening mammo w/cad. February 25, 2019, bilateral MG 3d screening mammo w/cad. No significant changes when compared with prior studies. ASSESSMENT: Benign, BI-RAD 2 RECOMMENDATION: Routine screening mammogram of both breasts in 1 year.
== END ==
LOC: WWCWWP 10:27
PROVIDERS: ATTEND Obstetrics & Gynecology
DX: Z12.31 Encounter for screening mammogram for malignant neoplasm of breast (principal); Z01.419 Encounter for gynecological examination (general) (routine) without abnormal findings; M81.0 Age-related osteoporosis without current pathological fracture; G43.909 Migraine, unspecified, not intractable, without status migrainosus; K21.9 Gastro-esophageal reflux disease without esophagitis; Z87.891 Personal history of nicotine dependence; Z79.899 Other long term (current) drug therapy; Z88.2 Allergy status to sulfonamides
CPT/HCPCS: 77063; 77067

== ENCOUNTER → 2021-08-11 | Outpatient (CLI) | payer MEDICARE, BC ==
--- NOTE | 2021-08-11 16:00 | BD ---
EXAMINATION TYPE: Axial Bone Density DATE OF EXAM: 08/11/2021 COMPARISON: Prior exam 02/25/2019 CLINICAL HISTORY: 65 years year old Female. ICD-10 CODE: Z78.0 ASYMPTOMATIC MENOPAUSAL STATE Height: 62.5 Weight: 120.7 FRAX RISK QUESTIONS: Alcohol (3 or more units per day): no Family History (Parent hip fracture): no Glucocorticoids (More than 3mos): no (Ex: prednisone, prednisolone, methylprednisolone, dexamethasone, and hydrocortisone). History of Fracture in Adulthood: ankle age 57 Secondary Osteoporosis: 1. Type 1 Diabetes: no 2. Hyperthyroidism: no 3. Menopause before 45: no 4. Malnutrition: no 5. Chronic liver disease: no Rheumatoid Arthritis: no Current Tobacco Use: no RISK FACTORS HISTORY OF: History of Wrist Fracture: LT A CHILD Family History of Osteoporosis: AUNT Active: YES MEDICATIONS: Osteoporosis Medications: EVISTA PAST 10 YEARS, Additional Medications: Tysabri, Zanaflex, Elavil, Myrbetriq. xanax, zyrtec, multivitamin, Calcium, D 3, Lansoprazole Additional History: EXAM MEASUREMENTS: Bone mineral densitometry was performed using the [employer] System. Bone mineral density as measured about the Lumbar spine is: ----- L1-L4(G/cm2): 0.813 T Score Values are as follows: ----- L1: -2.6 ----- L2: -3.4 ----- L3: -2.7 ----- L4: -3.6 ----- L1-L4: Bone mineral density has: INCREASED 0.9% % since study of: 02.25.2019 Bone mineral density about the R hip (g/cm2): 0.660 Bone mineral density about the L hip (g/cm2): 0.672 T Score values are as follows: -----R Neck: -2.5 -----L Neck: -2.5 -----R Total: -2.8 -----L Total: -2.8 Bone mineral density has: INCREASED 0.2 % since study of: 02.25.2019 FRAX%s: The graph provided illustrates a 20.7% chance for a major osteoporotic fx and a 5.0% chance f or the hips probability for fx in 10 years time. IMPRESSION: Osteoporosis (T Score less than -2.5). There is increased fracture risk and therapy is usually indicated based on age. Re-Screen 1-2 years. NOTE: T-SCORE=SD OF THE YOUNG ADULT MEAN.
== END | disposition home or self-care (01) ==
LOC: RADBDWWP 13:56
PROVIDERS: ATTEND Obstetrics & Gynecology
DX: M81.0 Age-related osteoporosis without current pathological fracture (principal); Z78.0 Asymptomatic menopausal state
CPT/HCPCS: 77080

== ENCOUNTER → 2021-11-11 | Outpatient (CLI) | payer MEDICARE | END | disposition home or self-care (01) | LOC: LABWHC1 09:29 | PROVIDERS: ATTEND Internal Medicine Cardiovascular Disease | DX: Z53.9 Procedure and treatment not carried out, unspecified reason (principal) ==

== ENCOUNTER → 2021-11-14 | Outpatient (CLI) | payer MEDICARE ==
[2021-11-14 15:53] LABS: ALT 9 U/L (8-44); AST 27 U/L (13-35)
== END | disposition home or self-care (01) ==
LOC: LABWHC1 08:00
PROVIDERS: ATTEND Internal Medicine Cardiovascular Disease
DX: E78.2 Mixed hyperlipidemia (principal)
CPT/HCPCS: 36415; 80061; 84450; 84460

== ENCOUNTER → 2022-01-14 | Outpatient (CLI) | payer MEDICARE ==
--- NOTE | 2022-01-16 09:34 | MR ---
MRI BRAIN WITH CONTRAST CLINICAL HISTORY: MS follow-up TECHNIQUE: Multiplanar, multisequence imaging of the brain and brainstem is performed without. [facility] linating disease protocol with additional Sagittal Flair sequence performed. Comparison: 02/12/2021 FINDINGS: T2 Lesions Present : Yes Approximate Number of Lesions: 8-10 Locations Identified : Pericallosal, Periventricular, Juxtacortical, Size of Largest Lesion(s): 1. Lesion right occipital subcortical region is unchanged at 1.3 versus 1.3 cm. Enhancing Lesion(s) P resent: n/a Change from Prior: There is a lesion posterior right tay radiata which has enlarged in size and me asures 10.2 mm versus 9.4 mm. There is also a lesion within the left centrum semioval bilaterally whi ch has enlarged and measures 5.1 mm versus 3.6 mm. Lesion in the region of the left external capsule has also enlarged and measures 5.6 mm versus 4 mm previously. Diffusion weighted images demonstrate no evidence of a recent infarct or other diffusion abnormality. There is no worrisome extra-axial fluid collection. The ventricular system and cisternal spaces ar e normal in size and appearance. The brain volume is age appropriate. Midline structures demonstrate normal morphology. The craniocervical junction appears within normal limits. Post contrast images demonstrate no abnormal enhancement. The dural venous sinuses appear pa tent. The visualized sinuses are clear and the globes are intact. IMPRESSION: 2. Although there is no increase in number of lesions several of the lesions have increased in size. EXAMINATION TYPE: MR brain/cspine wo DATE OF EXAM: 01/14/2022 1:25 PM COMPARISON: NONE HISTORY: MS, dizziness, left leg problems, arthritis in neck Multiplanar MultiSpin echo imaging of the cervical spine was performed. Comparison: none C2-C3: No evidence for degenerative disc disease. No disc bulge/herniation or protrusion. No Canal stenosis. Foramina are patent bilaterally. C3-C4: No evidence for degenerative disc disease. No disc bulge/herniation or protrusion. No Canal stenosis. Foramina are patent bilaterally. C4-C5: No evidence for degenerative disc disease. No disc bulge/herniation or protrusion. No Canal stenosis. Foramina are patent bilaterally. C5-C6: Moderate disc desiccation. Posterior disc bulge with mild effacement ventral thecal sac. No ev idence for disc herniation or central stenosis. C6-C7: No evidence for degenerative disc disease. No disc bulge/herniation or protrusion. No Canal stenosis. Foramina are patent bilaterally. C7-T1: No evidence for degenerative disc disease. No disc bulge/herniation or protrusion. No Canal stenosis. Foramina are patent bilaterally. Cervical segments are intact. There is normal alignment. Cervical spinal cord demonstrates somewhat of the patchy appearance I suspect underlying plaques of demyelination. Overall appearance is unchan ged. Craniovertebral junction relationships are within normal limits. IMPRESSION: 1. Stable plaques of demyelination cervical spinal cord. 2. Degenerative disc disease and disc bulging at C5-6 is stable.
== END | disposition home or self-care (01) ==
LOC: RADMRIMAIN 12:00
PROVIDERS: ATTEND Psychiatry & Neurology Neurology
DX: M50.322 Other cervical disc degeneration at C5-C6 level (principal); G37.9 Demyelinating disease of central nervous system, unspecified
CPT/HCPCS: 70551; 72141

== ENCOUNTER → 2022-03-23 | Outpatient (CLI) | payer MEDICARE ==
--- NOTE | 2022-03-24 16:27 | MM ---
Reason for Exam: Screening (asymptomatic). Last mammogram was performed 1 year(s) and 1 month(s) ago. Patient History: Menarche at age 10. First Full-Term at age 28. Postmenopausal. Risk Values: Missy 5 year model risk: 2.1%. NCI Lifetime model risk: 7.0%. Prior Study Comparison: 02/25/2019 Bilateral Screening Mammogram, [facility]. 03/03/2020 Bilateral Screening Mammogram, [facility]. 03/22/2021 Bilateral Screening Mammogram, [facility]. Tissue Density: There are scattered fibroglandular densities. Findings: Analyzed By CAD. Pattern appears symmetrical and stable. Benign vascular calcifications present bilaterally. No suspicious groups of microcalcifications, spiculated or lobular masses, architectural distortion or other secondary signs of malignancy are mammographically apparent. Overall Assessment: Benign, BI-RAD 2 Management: Screening Mammogram of both breasts in 1 year. A negative mammogram report should not preclude additional follow up of suspicious palpable abnormalities. Patient should continue monthly self breast exam. A clinical breast exam by your physician is recommended on an annual basis and results should be correlated with mammographic findings. Electronically signed and approved by: Jaime Forde D.O. Radiologis
== END | disposition home or self-care (01) ==
LOC: RADMAMWWP 09:50
PROVIDERS: ATTEND Internal Medicine
DX: Z12.31 Encounter for screening mammogram for malignant neoplasm of breast (principal); Z78.0 Asymptomatic menopausal state
CPT/HCPCS: 77063; 77067

== ENCOUNTER → 2022-05-08 | Outpatient (CLI) | payer MEDICARE ==
--- NOTE | 2022-05-08 15:36 | XR ---
EXAMINATION TYPE: XR chest 2V DATE OF EXAM: 05/08/2022 3:32 PM COMPARISON: Chest radiographs from 05/30/2016 TECHNIQUE: XR chest 2V Frontal and lateral views of the chest. CLINICAL INDICATION:Female, 66 years old with history of S29.001A UNSP INJURY OF MSL/TND OF FRONT WAL L OF T; FINDINGS: Lungs/Pleura: There is no evidence of pleural effusion, focal consolidation, or pneumothorax. Pulmonary vascularity: Unremarkable. Heart/mediastinum: Cardiomediastinal silhouette is unremarkable. Musculoskeletal: No acute osseous pathology. IMPRESSION: No acute cardiopulmonary disease/process.
== END | disposition home or self-care (01) ==
LOC: RADXRMAIN 15:12
PROVIDERS: ATTEND Internal Medicine
DX: S29.001A Unspecified injury of muscle and tendon of front wall of thorax, initial encounter (principal)
CPT/HCPCS: 71046

== ENCOUNTER → 2022-07-20 | Outpatient (CLI) | payer MEDICARE ==
--- NOTE | 2022-07-20 23:26 | MR ---
EXAMINATION TYPE: MR brain wo con DATE OF EXAM: 07/20/2022 COMPARISON: Most recent MRI brain January 14, 2022. HISTORY: MS, Dizziness, Med review TECHNIQUE: Multiplanar, multisequence imaging of the brain and brainstem is performed without IV cont rast. Demyelinating disease protocol. FINDINGS: T2 Lesions Present : Yes Approximate Number of Lesions: Less than 10 Locations Identified : Scattered Size of Reference Lesion(s): 1. 1.4 x 1.2 x 1.4 cm on axial image 15 and sagittal image 176 peripheral right occipital subcortical lesion stable. 2 1.0 x 0.9 x 0.8 cm on axial image 19 and sagittal image 180 1T right parietal lesion stable Enhancing Lesion(s) Present: n/a T1 Hypointense Lesion(s) Present: Yes Change from Prior: Stable Diffusion weighted images demonstrate no evidence of a recent infarct or other diffusion abnormality. There is no worrisome extra-axial fluid collection. Mild ventricular and sulcal prominence is redem onstrated. Midline structures redemonstrate normal morphology. The craniocervical junction remains within kristen l limits. Normal vascular flow voids remain present. The visualized sinuses are clear and the globes are intact. Small Thornwaldt cyst posterior nasopharynx axial image 11 remains present. IMPRESSION: [id number] nonspecific white matter changes redemonstrated may be an basis of patie nt's known multiple sclerosis. No significant change from most recent prior MRIs.
== END | disposition home or self-care (01) ==
LOC: RADMRIMAIN 16:13
PROVIDERS: ATTEND Psychiatry & Neurology Neurology
DX: G93.89 Other specified disorders of brain (principal); G50.0 Trigeminal neuralgia; G35 Multiple sclerosis; N31.9 Neuromuscular dysfunction of bladder, unspecified; R53.83 Other fatigue
CPT/HCPCS: 70551

== ENCOUNTER → 2023-01-26 | Outpatient (CLI) | payer MEDICARE ==
--- NOTE | 2023-01-26 15:19 | MR ---
EXAMINATION TYPE: MR brain/cspine wo DATE OF EXAM: 01/26/2023 8:00 AM CLINICAL INDICATION:Female, 67 years old with history of G35 MULTIPLE SCLEROSIS; PHH, F/U comparison to prior MR. No new symptoms. COMPARISON: 01/14/2022 and 07/20/2022. 07/17/2019. TECHNIQUE: Multi planar, multi sequence imaging was performed through the brain including: T1, T2, Inversion rec overy, Diffusion weighted imaging, and gradient echo imaging. No gadolinium was given. Multi planar, multi sequence imaging was performed utilizing: T1-weighted, T2-weighted, and turbo inv ersion recovery imaging of the cervical spine. IV Contrast: None FINDINGS: Scattered white matter changes of which the left frontal lobe lesion is more pronounced erik suring 6 x 3 mm, previously 4 x 3 mm. Right parietal region lesion measuring 9 x 9 mm is similar give n differences in technique and measuring. Right occipital lobe area of subcortical white matter navarrete e are not significantly changed. Is no evidence of restricted diffusion. Some of the white matter reilly nges are orthogonal to the ventricles. The ma-white junctions, ventricular system, and cisterns appear unremarkable. Midline structures sh ow no abnormality. Diffusion-weighted imaging shows no evidence of restricted diffusion. The suscepti bility weighted images do not reveal any evidence for micro-hemorrhage. The bone marrow signal is within normal limits. Paranasal sinuses and mastoid air cells: No significant paranasal sinus disease. Visualized orbits: Orbital contents are intact. Alignment: The cervical vertebral bodies have preserved heights. Alignment is within normal limits gi christiano patient positioning. Bones: Scattered Modic endplate changes with osteophytes and disc space narrowing. Multilevel degener ative disc disease is noted and most pronounced at the C5-C7 vertebral levels. Cord: The spinal cord is unremarkable with regards to their signal intensity and morphology. Similar increased cord signal at the level of C4 compared to 01/14/2022. Indication back to at least 07/17/2019 . Discs: Multilevel disc desiccation is present. C2-C3: No significant disc pathology. The spinal canal is patent. No neural foraminal stenosis. C3-C4: No significant disc pathology. The spinal canal is patent. No neural foraminal stenosis. C4-C5: No significant disc pathology. The spinal canal is patent. No neural foraminal stenosis. C5-C6: No significant disc pathology. The spinal canal is patent. Bilateral facet and uncovertebral joint arthropathy are present with mild bilateral neural foraminal stenosis. C6-C7: No significant disc pathology. The spinal canal is patent. No neural foraminal stenosis. C7-T1: No significant disc pathology. The spinal canal is patent. No neural foraminal stenosis. Other: None. IMPRESSION: 1. White matter changes which of which a left frontal lesion is more prominent on today's exam. No e vidence for restricted diffusion. 2. Stable white matter changes within the cervical spine on the left posterior aspect back to at [id number]. 3. No evidence for disc herniation or significant spinal canal stenosis. 4. Multilevel disc degeneration with associated osteoarthritic changes.
== END | disposition home or self-care (01) ==
LOC: RADMRIMAIN 06:55
PROVIDERS: ATTEND Psychiatry & Neurology Neurology
DX: G35 Multiple sclerosis (principal); G93.89 Other specified disorders of brain; M50.30 Other cervical disc degeneration, unspecified cervical region; M43.02 Spondylolysis, cervical region
CPT/HCPCS: 70551; 72141

== ENCOUNTER → 2023-02-21 | Outpatient (CLI) | payer MEDICARE | END | disposition home or self-care (01) | LOC: LABWHC1 11:16 | PROVIDERS: ATTEND Psychiatry & Neurology Neurology | DX: E53.8 Deficiency of other specified B group vitamins (principal); G35 Multiple sclerosis; G50.0 Trigeminal neuralgia | CPT/HCPCS: 36415; 82607; 82746; 83090; 83921 ==

== ENCOUNTER → 2023-03-28 | Outpatient (CLI) | payer MEDICARE ==
[2023-03-28 11:52] VITALS: BP 123/72; PULSE 76; RESP 16; TEMP 97.7
--- NOTE | 2023-03-28 12:31 | P.HPOB ---
History of Present Illness H&P Date: 03/28/23 Chief Complaint: The patient is here for her routine gynecologic exam and ma mmogram. This is a 67-year-old 011 with an LMP of 2007. The patient has been experiencing vulvar itching and irritation for about 3 weeks. She initially tried Vagistat oh cream which did not help. About 2 weeks ago she noticed a very slight yellowish discharge which was thick and without odor. She used [id number] Monistat with very brief improvement, then the irritation returned. She no longer notices that a slight discharge. She also has been having occasional urinary leakage where she needs to get to the bathroom right away or will leak. Because of this she has been wearing pads. She has seen a urologist who treated her Myrbetriq and later a implant stimulator device, both of which did not help. She is otherwise without complaints and denies was menopausal bleeding. Review of Systems The patient's weight has been stable over the last year. She denies respiratory, cardiac, or G.I. problems. Past Medical History Past Medical History: GERD/Reflux, Hyperlipidemia, Neurologic Disorder Additional Past Medical History / Comment(s): osteoporosis, multiple sclerosis, migraines, chronic constipation, overactive bladder, environmental allergies and trigeminal neuralgia. 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 PAST SENSITOMETRIST HISTORY: She has no history of STDs. History of Any Multi-Drug Resistant Organisms: None Reported Past Surgical History: Section, Tonsillectomy Additional Past Surgical History / Comment(s): D&C's, sinus surgery, EGD 2015, colonoscopy 2012(next after 10yrs). Past Anesthesia/Blood Transfusion Reactions: Motion Sickness, Postoperative Nausea & Vomiting (PONV) Past Psychological History: No Psychological Hx Reported Additional Psychological History / Comment(s): Pt resides with her spouse. She normally is independent-no assistive device and she drives. Smoking Status: Former smoker Past Alcohol Use History: Rare (1 drink per month.) Additional Past Alcohol Use History / Comment(s): Pt states she started smoking as a late teen and quit in 1977. Past Drug Use History: None Reported Additional History: She has been since 1976 and is not sexually active. She is retired. - Past Family History Father Family Medical History: CVA/TIA, Diabetes Mellitus Additional Family Medical History / Comment(s): Father of a CVA. 1st cousin had MS. And had bladder cancer. Mother Family Medical History: CVA/TIA Additional Family Medical History / Comment(s): TIAs Medications and Allergies Home Medications Medication Instructions Recorded Confirmed Type Amitriptyline HCl [Elavil] 25 mg PO HS 07/20/14 03/28/23 History Cetirizine HCl [Zyrtec] 10 mg PO HS 07/20/14 03/28/23 History tiZANidine [Zanaflex] 2 mg PO QID 07/20/14 03/28/23 History Multivitamins, Thera [Multivitamin] 1 tab PO DAILY 05/29/16 03/28/23 History Raloxifene [Evista] 60 mg PO DAILY 05/29/16 03/28/23 History metroNIDAZOLE [Metrolotion] 1 applic TOPICAL BID 05/29/16 03/28/23 History Calcium Carbonate/Vitamin D3 1 each PO DAILY 02/25/19 03/28/23 History [Calcium 500-Vit D3 600 Tablet] Cholecalciferol [Vitamin D3 (25 1,000 unit PO DAILY 02/25/19 03/28/23 History Mcg = 1000 Iu)] Tysabri 1 bag IV QMONTH 02/25/19 03/28/23 History Aspirin 81 mg PO DAILY 03/28/23 03/28/23 History Atorvastatin [Lipitor] 20 mg PO DAILY 03/28/23 03/28/23 History Allergies Allergy/AdvReac Type Severity Reaction Status Date / Time Sulfa (Sulfonamide Allergy hives Verified 03/28/23 11:19 Antibiotics) Exam Vital Signs Temp Pulse Resp BP Pulse Ox 03/28/23 11:23 97.7 F 76 16 123/72 95 Intake and Output 03/27/23 03/28/23 03/28/23 22:59 06:59 14:59 Other: Weight 54.885 kg Height 5 feet 3 inches, weight 121 pounds, BMI 21.4. This is a well-developed well-nourished white female who is alert and oriented times 3 in no acute distress. HEENT: Within normal limits. NECK: Supple without mass or thyromegaly. CHEST AND LUNGS: Clear to auscultation. HEART: Regular rate and rhythm. BREASTS: Are without mass or discharge. AXILLARY EXAM: Negative for adenopathy. BACK: Negative for CVA tenderness. ABDOMEN: Soft, nontender, without palpable masses. PELVIC EXAM: External genitalia reveals moderate atrophy with mild generalized erythema and no focal lesions. There is no ulceration or excoriation noted. There is no significant pallor of the external genitalia. Cervix and vagina appear normal with moderate atrophy. There is no unusual discharge. There is no evidence of prolapse. There is minimal urethral mobility with cough and Valsalva. No urinary leakage was demonstrated. The uterus is midposition, nongravid size and nontender. There are no palpable adnexal masses or tenderness. RECTAL EXAM: Rectovaginal exam is negative for mass or tenderness and is negative for occult blood. EXTREMITIES: Nontender. IMPRESSION: 1. 67-year-old menopausal female with a three-week history of vulvar irritation and itching for which vaginal SARAI and Monistat cream did not seem to help. 2. Recent vaginal discharge which was slight and resolved after Monistat cream was used. 3. Mild urinary incontinence, probable urge incontinence. This also may poss ibly be a cause or a factor in her vulvar irritation because of chronic moisture. 4. History of osteoporosis on Evista through her PCP. PLAN: 1. Pap smears have been discontinued. 2. Self breast awareness was discussed with the patient. We have also discussed symptoms associated with inflammatory breast cancer. 3. Screening mammogram was done today. 4. We have had a long discussion regarding her urinary incontinence. I have given her instructions on ketal exercises and timed voids. She will also try to empty the bladder as complete as possible with relaxing and giving herself more time to void. 5. Affirm vaginitis panel was obtained from the vagina to rule out certain types of vaginal infections as a cause for her vulvar irritation. 6. Kenalog 0.1% cream twice a day as needed for vulvar irritation. She was also instructed to use a small amount of petroleum jelly or Aquaphor as a protective layer once a day. 7. She was advised to return in one year for her annual well woman exam and if symptoms have not improve.
--- NOTE | 2023-03-31 19:59 | P.PN ---
Progress Note - Text Progress Note Date: 03/31/23 Affirm vaginitis panel done on 03/28/23 was negative for Jaja, Gardnerella and Trichomonas. The patient was notified by phone on 03/31/23. Imp: Vulvar irritation with negative vaginitis infection panel. Plan: Kenalog cream as directed. She can also use Aquafor or petroleum jelly once daily at a different time than the Kenalog as a protective layer.Call if symptoms are not improving or if problems.
--- NOTE | 2023-04-01 17:59 | MM ---
Reason for Exam: Screening (asymptomatic). Last screening mammogram was performed 12 month(s) ago. Patient History: Menarche at age 10. First Full-Term at age 28. Postmenopausal. Risk Values: Missy 5 year model risk: 2.1%. NCI Lifetime model risk: 6.7%. Prior Study Comparison: 03/03/2020 Bilateral Screening Mammogram, [facility]. 03/22/2021 Bilateral Screening Mammogram, [facility]. 03/23/2022 Bilateral MG 3D screening mammo w/cad, [facility]. Tissue Density: There are scattered fibroglandular densities. Findings: Analyzed By CAD. Benign vascular calcifications are redemonstrated. There is no suspicious group of microcalcifications or new suspicious mass in either breast. Overall Assessment: Benign, BI-RAD 2 Management: Screening Mammogram of both breasts in 1 year. . Patient should continue monthly self-breast exams. A clinical breast exam by your physician is recommended on an annual basis. This exam should not preclude additional follow-up of suspicious palpable abnormalities. Note on Missy scores and lifetime risk: 1. A Missy score greater than 3% is considered moderate risk. If this is the case, consider specialist referral to assess eligibility for a risk reducing agent. 2. If overall lifetime risk for the development of breast cancer is 20% or higher, the patient may qualify for future screening with alternating mammogram and breast MRI. Electronically signed and approved by: Lula Martinez M.D. Radiologist
== END | disposition home or self-care (01) ==
LOC: RADMAMWWP 10:03
PROVIDERS: ATTEND Obstetrics & Gynecology
DX: Z12.31 Encounter for screening mammogram for malignant neoplasm of breast (principal); Z78.0 Asymptomatic menopausal state
CPT/HCPCS: 77063; 77067

== ENCOUNTER → 2023-11-07 | Outpatient (CLI) | payer MEDICARE ==
[2023-11-07 09:47] VITALS: BP 106/70; PULSE 89; RESP 16; TEMP 98
--- NOTE | 2023-11-07 10:26 | P.PN ---
Progress Note - Text Progress Note Date: 11/07/23 Chief Complaint: Vulvar irritation which has become much worse over the past 1 month. HPI: This is a 67-year-old -0-1-1 with an LMP of 2007. The patient has been using Kenalog cream as needed for vulvar irritation and this was prescribed after she was seen on 03/28/2023. She states this has been helping and she would also use Aquaphor as a protective layer. Just over 1 month ago, the vulvar symptoms seem to become much worse with irritation, burning and soreness. She denies itching or vaginal discharge or vaginal odor. She denies any significant urinary incontinence, but has been having significant urinary frequency with nocturia and slight urgency. She has been getting up to urinate about 5 times at night. She previously was treated by a urologist for an overactive bladder and used 2 different medications including Myrbetriq and also had a trial of a bladder stimulator device which did not help her. She states taking Tylenol at bedtime seems to help with her symptoms at night. She has been trying to use nonallergenic detergents and has used minimal or no soap in the vaginal area. ROS: She denies fever. She denies respiratory or cardiac problems. GI: Slight constipation and she has been using a stool softener for this. PE: Blood pressure: 106/70, Height: 5 feet 3 inches, Weight: 124 pounds, Temperature: 98.0, Pulse: 89. Pulse oximeter 96% This is a well developed, well nourished, white female who is alert and orientedx3, in no acute distress. External genitalia reveals mild to moderate atrophy with generalized erythema without significant demarcation. The erythema extends from the vulva bilaterally to the perineum. There is no significant pallor or leukoplakia. There are no focal lesions noted. Vagina: There is a slight thick yellowish discharge within the vagina without significant odor. Vagina reveals moderate atrophy. Cervix appears nulliparous and normal. Bimanual examination: There is no cervical motion tenderness. Uterus is small nongravid size and nontender. There are no palpable adnexal masses or tenderness. The area of the bladder is minimally tender and states it makes her feel like she needs to urinate when this area is palpated. Impression: 1. 67-year-old menopausal female with vulvitis with sensation of burning and soreness. 2. Significant genital atrophy. 3. Urinary frequency with some urinary urgency. The patient denies significant urinary leakage. Plan: 1. Affirm vaginitis panel was obtained from the vagina. 2. Clean-catch midstream urine will be obtained for urinalysis and culture with sensitivity. 3. Trial of estrogen vaginal cream. Estradiol vaginal cream 1 g every other day for 2 weeks followed by twice weekly. She can apply a small amount of the estrogen cream to the urinary opening area. The electronic prescription will be sent to [facility] pharmacy on [address] 4. She will continue to use the Kenalog 0.1% cream twice daily as needed. 5. She will return if symptoms or not improving or problems. She will also return in approximately 5 months for her annual well woman examination. Time spent with the patient: 25 minutes
--- NOTE | 2023-11-08 15:12 | P.PN ---
Progress Note - Text Progress Note Date: 11/08/23 OUTPATIENT FOLLOW-UP NOTE TEST(S)/RESULTS: Urinalysis done on 11/07/2023 showed moderate leukocyte Estrace and 1+ bacteria and there was a turbid appearance. METHOD OF NOTIFICATION: A message indicating her urinalysis showed signs of a urinary tract infection was left on the patient's voicemail. PATIENT COMMENTS: DIAGNOSIS: Cystitis UTI with urinary frequency. DISCUSSION: Electronic prescription was sent for Macrobid 1 by mouth twice daily x 7 days. This electronic prescription was sent to [facility] pharmacy on . There are no refills. PLAN: As above. Await affirm vaginitis panel, which is pending.
--- NOTE | 2023-11-09 08:41 | P.PN ---
Progress Note - Text Progress Note Date: 11/09/23 Affirm vaginitis panel done on 11/06/23 was negative for Jaja, Gardnerella, and Trichomonas. The patient was notified by phone on 11/08/23. The patient states she has started the Macrobid for the UTI shown by urinalysis. She will also use the estradiol vaginal cream as directed, and the Kenalog cream as directed. Urine culture is not showing up. Will await to see if it shows up. The patient is to call if problems.
== END ==
LOC: WWCWWP 09:03
PROVIDERS: ATTEND Obstetrics & Gynecology
DX: N76.2 Acute vulvitis (principal); N32.81 Overactive bladder; R35.1 Nocturia; Z88.2 Allergy status to sulfonamides; Z87.891 Personal history of nicotine dependence

== ENCOUNTER → 2023-12-05 | Outpatient (CLI) | payer MEDICARE ==
--- NOTE | 2023-12-29 07:50 | US ---
EXAMINATION TYPE: US kidneys/renal and bladder DATE OF EXAM: 12/20/2023 COMPARISON: NONE CLINICAL INDICATION: Female, 68 years old with history of N31.8 R39.15 R35.0; Technique: Multiple sonographic images of the kidneys and bladder are obtained. FINDINGS: Right and left kidneys measure 11.3 and 10.7 cm, respectively, without hydronephrosis. Limited detailed visualization of the lower pole left kidney due to shadowing from bowel gas. No gross abnormality of the bladder. Both ureteral jets are visualized. Some incidental calcification s noted within the uterus, probably myometrial/vascular calcifications. IMPRESSION: No hydronephrosis.
== END | disposition home or self-care (01) ==
LOC: RADUSWWP 12:00
PROVIDERS: ATTEND Urology
DX: N31.8 Other neuromuscular dysfunction of bladder (principal); R39.15 Urgency of urination; R35.0 Frequency of micturition
CPT/HCPCS: 76770

== ENCOUNTER → 2024-01-26 | Outpatient (CLI) | payer MEDICARE ==
[2024-01-26 12:51] LABS: ALT 17 U/L (8-44); AST 25 U/L (13-35); Chol/HDL Ratio 2.43 Ratio; LDL Cholesterol,Calculated 70.9 mg/dL (0.0-131.0)
== END | disposition home or self-care (01) ==
LOC: LABWHC1 08:18
PROVIDERS: ATTEND Internal Medicine Cardiovascular Disease
DX: E78.2 Mixed hyperlipidemia (principal)
CPT/HCPCS: 36415; 80061; 84450; 84460

== ENCOUNTER → 2024-04-04 | Day surgery (SDC) | payer MEDICARE ==
[2024-04-03 09:05] VITALS: BMI 21.2
[~2024-04-04] MED LIST: LIDOCAINE 1% (10MG/ML) FOR IV START INTRADERMA PRN; PROPOFOL 10 MG/ML 20 ML VIAL IV ONE
[2024-04-04 12:03] VITALS: TEMP 97
[2024-04-04] MEDS: IV FLUID CONTINUATION 1,000 ML IV ONE ×3 (12:03→14:25)
[2024-04-04] MEDS: LACTATED RINGERS 1,000 ML IV SCH (12:08)
--- NOTE | 2024-04-04 13:11 | P.PCN ---
Date of Procedure: 04/04/24 Procedure(s) Performed: BRIEF HISTORY: Patient is a 68-year-old pleasant white female scheduled for an elective colonoscopy as a part of screening for colon cancer. PROCEDURE PERFORMED: Colonoscopy polypectomy and Endo Clip placement. PREOPERATIVE DIAGNOSIS: Screening for colon cancer. IV sedation per Anesthesia. PROCEDURE: After informed consent was obtained, the patient, was brought into the endoscopy unit. IV sedation was administered by Anesthesia under continuous monitoring. Digital rectal examination was normal. Initially the Olympus CF-160 flexible video colonoscope was then inserted in the rectum, gradually advanced into the cecum without any difficulty. Careful examination was performed as the scope was gradually being withdrawn. Ileocecal valve and the appendiceal orifice were visualized and appeared normal. Prep was excellent. Mucosa of the cecum. In the ascending colon there was a 2 cm flat polyp that was removed by piecemeal snare polypectomy followed by Endo Clip placement and complete polypectomy was accomplished,. Rest of the ascending colon, transverse colon, descending colon, sigmoid colon, and rectum appeared normal. Retroflexion was performed in the rectum and no lesions were seen. The patient tolerated the procedure well. IMPRESSION: 2 centimeter flat ascending colon polyp status post piecemeal snare polypectomy followed by Endo Clip placement Rest of the colon appeared normal RECOMMENDATIONS: Findings of this examination were discussed with the patient as well as her family. She was advised to follow-up with the biopsy results. If the biopsy reveals adenoma she can have repeat colonoscopy in 3 years.
[2024-04-04 14:03] VITALS: RESP 14
[2024-04-04] MEDS: hydrALAZINE HCL 20 MG/ML 1 ML VIAL IVP STA (14:37)
[2024-04-04 15:22] VITALS: BP 125/58; PULSE 104
== END ==
LOC: ORWHC2ENDO 10:49
PROVIDERS: ATTEND Internal Medicine Gastroenterology
DX: Z12.11 Encounter for screening for malignant neoplasm of colon (principal); D12.2 Benign neoplasm of ascending colon; E78.5 Hyperlipidemia, unspecified; M81.0 Age-related osteoporosis without current pathological fracture; N32.81 Overactive bladder; G50.0 Trigeminal neuralgia; G35 Multiple sclerosis; K21.9 Gastro-esophageal reflux disease without esophagitis; Z79.82 Long term (current) use of aspirin; Z79.899 Other long term (current) drug therapy; Z88.2 Allergy status to sulfonamides
CPT/HCPCS: 88305; 45385; J0360; J2704

== ENCOUNTER → 2024-04-22 | Outpatient (CLI) | payer MEDICARE ==
[2024-04-22 09:56] VITALS: BP 142/76; PULSE 64; RESP 16; TEMP 97.9
--- NOTE | 2024-04-22 10:57 | P.PN ---
Progress Note - Text Progress Note Date: 04/22/24 Chief Complaint: Vulvar irritation which has gotten worse since discontinuing estradiol cream. HPI: This is a 68-year-old -0-1-1 with an LMP of 2007. Patient has been having issues with vulvar irritation for about 1 year. She has tried different things with varying success. Used estradiol vaginal cream for about 6 to 8 weeks and things seem to be improving. She developed headache and diarrhea and thought it may be from the estradiol cream and she discontinued it at the end of January 2024. The vulvar irritation seem to get worse. She also has used Aquaphor on some days and also Kenalog cream periodically at night. She started also using Replens moisturizer which seems to help as well. Tightfitting clothes seem to irritate this. She no longer takes Myrbetriq for an overactive bladder [place] did not seem to help much. She does have some urinary urgency and has to get to the bathroom right away. Stress urinary incontinence does not seem to be an issue and does not have immediate leakage with coughing or sneezing. ROS: She denies respiratory, cardiac, or GI problems. PE: Blood pressure: 142/76, Height: 5 feet 3 inches, Weight: 125 pounds, Temperature: 97.9, Pulse: 64. Pulse oximeter 100% This is a well developed, well nourished, quite female who is alert and or ientedx3, in no acute distress. External genitalia reveals some generalized erythema without pallor. This is more noticeable posterior extending to the perineum. There is no perianal irritation or pallor. Vagina: There is no and usual discharge or odor. Impression: 1. 68-year-old menopausal female with chronic vulvar irritation which seem to improve with estradiol vaginal cream, but she developed a headache and diarrhea, so she discontinued the cream. 2. At this time it does not appear consistent with lichen sclerosis and there are no focal lesions. Plan: 1. I have recommended that she have a trial of going back on the estradiol vaginal cream which she will apply just to the vulva. She will start with 1 time per week and she can increase this to twice a week if she is not having any problems. At this time I do not believe the headache and diarrhea were most likely caused by the estradiol vaginal cream. 2. I have recommended that she use Aquaphor once daily and the Kenalog cream twice daily as needed for vulvar irritation. She will try to use looser fitting clothes. 3. She will call if symptoms or not improving otherwise she will return in 2024 for her well woman examination Time spent with the patient: 25 minutes
== END ==
LOC: WWCWWP 09:45
PROVIDERS: ATTEND Obstetrics & Gynecology
DX: N76.89 Other specified inflammation of vagina and vulva (principal); R19.7 Diarrhea, unspecified; R51.9 Headache, unspecified; Z78.0 Asymptomatic menopausal state; Z88.2 Allergy status to sulfonamides; Z87.891 Personal history of nicotine dependence

== ENCOUNTER → 2024-08-21 | Outpatient (CLI) | payer MEDICARE ==
--- NOTE | 2024-08-21 11:05 | MM ---
Reason for Exam: Screening (asymptomatic). Last mammogram was performed 1 year(s) and 5 month(s) ago. Patient History: Menarche at age 10. First Full-Term at age 28. Postmenopausal. Risk Values: Missy 5 year model risk: 2.1%. NCI Lifetime model risk: 6.4%. Prior Study Comparison: 03/22/2021 Bilateral Screening Mammogram, [facility]. 03/23/2022 Bilateral MG 3D screening mammo w/cad, [facility]. 03/28/2023 Bilateral MG 3D screening mammo w/cad, [facility]. Tissue Density: There are scattered areas of fibroglandular density. Findings: Analyzed By CAD. There are benign-appearing linear along with round and vascular calcifications bilaterally redemonstrated. There is no suspicious group of microcalcifications or new suspicious mass in either breast. Overall Assessment: Benign, BI-RAD 2 Management: Screening Mammogram of both breasts in 1 year. . Patient should continue monthly self-breast exams. A clinical breast exam by your physician is recommended on an annual basis. This exam should not preclude additional follow-up of suspicious palpable abnormalities. Note on Missy scores and lifetime risk: 1. A Missy score greater than 3% is considered moderate risk. If this is the case, consider specialist referral to assess eligibility for a risk reducing agent. 2. If overall lifetime risk for the development of breast cancer is 20% or higher, the patient may qualify for future screening with alternating mammogram and breast MRI. [facility], , 08/21/2024 11:02 AM. Electronically signed and approved by: Jesus Campoverde M.D.
--- NOTE | 2024-08-21 11:30 | BD ---
EXAMINATION TYPE: Axial Bone Density DATE OF EXAM: 08/21/2024 CLINICAL HISTORY: 68 years old Female. ICD-10 CODE: M81.6 LOCALIZED OSTEOPOROSIS [LEQ , Additional H istory: Height: 62 Weight: 123 FRAX RISK QUESTIONS: History of Fracture in Adulthood: yes Secondary Osteoporosis: RISK FACTORS HISTORY OF: MEDICATIONS: Osteoporosis Medications: Which medication: Evista How Long: about 12 years EXAM MEASUREMENTS: Bone mineral densitometry was performed using the [employer] System. Bone mineral density as measured about the Lumbar spine is: ----- L1-L4(G/cm2): 0.838 T Score Values are as follows: ----- L1: -2.3 ----- L2: -3.1 ----- L3: -2.9 ----- L4: -3.2 ----- L1-L4: -2.8 Z Score Values are as follows: ----- L1: -0.3 ----- L2: -1.1 ----- L3: -0.9 ----- L4: -1.3 ----- L1-L4: -0.9 Bone mineral density has: Increased 3.1% since study of: 08-11-21 Bone mineral density about the R hip (g/cm2): 0.677 Bone mineral density about the L hip (g/cm2): 0.647 T Score values are as follows: -----R Neck: -2.7 -----L Neck: -2.4 -----R Total: -2.6 -----L Total: -2.9 Z Score values are as follows: -----R Neck: -0.9 -----L Neck: -0.5 -----R Total: -1.0 -----L Total: -1.2 Bone mineral density has: Decreased -0.6% since study of: 08-11-21 FRAX%s: The graph provided illustrates a 24.2% chance for a major osteoporotic fx and a 7.2% chance f or the hips probability for fx in 10 years time. IMPRESSION: Osteoporosis (T Score less than -2.5) remains present. There is increased fracture risk and therapy is usually indicated based on age. Re-Screen 1-2 years. NOTE: T-SCORE=SD OF THE YOUNG ADULT MEAN. [facility], , 08/21/2024 11:28 AM
== END | disposition home or self-care (01) ==
LOC: RADMAMWWP 10:06
PROVIDERS: ATTEND Family Medicine
DX: Z12.31 Encounter for screening mammogram for malignant neoplasm of breast (principal); M81.8 Other osteoporosis without current pathological fracture; R92.323 Mammographic fibroglandular density, bilateral breasts; Z78.0 Asymptomatic menopausal state
CPT/HCPCS: 77063; 77067; 77080

== ENCOUNTER → 2024-10-17 | Outpatient (CLI) | payer MEDICARE ==
[2024-10-17 15:18] LABS: Basophils # (A) 0.06 X 10*3/uL (0.00-0.10); Basophils % (A) 0.7 %; Eosinophils # (A) 0.13 X 10*3/uL (0.04-0.35); Eosinophils % (A) 1.5 %; HCT 39.8 % (37.2-46.3); HGB 12.5 g/dL (12.0-15.0); Lymphocytes # (A) 3.17 X 10*3/uL (0.90-5.00); Lymphocytes % (A) 37.3 %; MCHC 31.4 g/dL (32.0-37.0); MCV 95.7 FL (80.0-97.0); Mean Platelet Volume 10.4 FL (9.5-12.2); Monocytes % (A) 8.2 %; NRBC Per 100 WBC 0.02 X 10*3/uL (0.00-0.01); Neutrophils % (A) 51.8 %; Platelet Count 216 X 10*3/uL (140-440); RBC 4.16 X 10*6/uL (4.10-5.20); RDW 13.6 % (11.5-14.5)
[2024-10-17 15:43] LABS: ALT 18 U/L (8-44); AST 24 U/L (13-35); Albumin 3.9 g/dL (3.8-4.9); Albumin/Globulin Ratio 2.05 Ratio (1.60-3.17); Alkaline Phosphatase 79 U/L (41-126); BUN/Creat Ratio 33.86 Ratio (12.00-20.00); Blood Urea Nitrogen 23.7 mg/dL (9.0-27.0); Calcium 9.1 mg/dL (8.7-10.3); Carbon Dioxide 26.2 mmol/L (21.6-31.8); Chloride 108 mmol/L (96-109); Globulin 1.9 g/dL (1.6-3.3); Glucose 102 mg/dL (70-110); Potassium 4.6 mmol/L (3.5-5.5); Sodium 144 mmol/L (135-145); Total Bilirubin <0.2 mg/dL (0.3-1.2); Total Protein 5.8 g/dL (6.2-8.2)
== END | disposition home or self-care (01) ==
LOC: LABWHC1 09:32
PROVIDERS: ATTEND Psychiatry & Neurology Neurology
DX: G35 Multiple sclerosis (principal); G50.0 Trigeminal neuralgia
CPT/HCPCS: 36415; 80053; 85025